=== PATIENT | female | born 1960 | race Caucasian/White ===

== ENCOUNTER 2016-09-10 08:06 | Outpatient (RCR) | payer MEDICARE, BC ==
--- OUTSIDE RECORDS SUMMARY | 2016-06-21 12:44 | XMS REPORT | Continuity of Care Document ---
Author Author [facility] Organization [facility] Address Unknown Phone Unavailable Care Team Providers Care Chocolate Temperer Name Role Phone Self, Albino PCP [phone] Source Comments Some departments are not documenting in the electronic medical record. If you do not see the information that you expected, contact Release of Information in the Health Information Management department at [phone] for further assistance in locating additional records.[facility] Active Allergies and Adverse Reactions No Known Allergies Current Medications Prescription Sig. Disp. Refills Start End Date Status Date levothyroxine (SYNTHROID) Take 125 mcg by mouth Active 125 mcg tablet daily. pravastatin (PRAVACHOL) Take 40 mg by mouth Active 40 mg tablet daily. senna/docusate Take 1 Tab by mouth twice 05/09/20 Active (SENOKOT-S) 8.6/50 mg daily. 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 05/07/15 surgical resection of left frontal brain tumor. Present treatment: Recommend starting radiation followed by PCV chemotherapy for 6 months Oncologist: Dr. Rodriguez Inital Pathology: Anaplastic Oligodendroglioma, WHO Grade III. FISH: A subset of cells had 3 to 7 control singnals for both chromosome 1 and chromosome 19 along with 1 to 4 signals for 1p and 19q. This signla pattern is consistent with polysomy and a relative loss of 1p and 19q. Similar patterns have been reported to be a marker of earlier recurrence in anaplastic oligodendrogliomas. Inital presentation: Right handed F with hx of intermittent headaches located over the bridge of nose, right orbit and neck for severeal yeats, worse laying supine, improved with sitting upright. Noticed increase in memory loss, word finding difficulty, confusion and blurred vision of unknown duration. She was seen by Dr. Jaffe in [place], [place] in May, who ordered an MRI which showed a large frontal mass measuring 6.2 x 4.2 cm. - June 2011: S/p stereotactic guided left craniotomy of left frontal lobe mass with Dr. Finch - July 2011 - First cycle of maintenance Temodar 150 mg/m2 (300 mg) on days 1-5 -- Repeat cycle every 28 days. - September 2012: S/p one year temozolomide - July 2014: MRI ([facility]) showed stable left frontal lobe resection cavity with abnormal enhancing nodule along posterior wall - September 2014: Repeat MRI ([facility]) consistent with MRI in 07/2014, mild increase in tumor size - January 2015: Repeat MRI stable - February 2015: Discussed at Interdisciplinary tumor board, recommended resection then chemo/radiation depending on histology. Patient notified, to weigh options then notify Dr. Howard of decision. Radiation Oncology consulted who did not feel SRS would benefit patient due to multifocal nature of tumors - 05/07/15: S/p surgical resection of left frontal brain tumor, findings=cystic cavity with sanguineous fluid, abnormal nodular tissue at base of cavity; path pending - 05/08/15: Post-op MRI shows expected post-surgical changes -05/20/15: Path results reveal Anaplastic Oligodendroglioma (WHO grade III) d/w with pt and . Recommend starting radiation, followed by PCV chemotherapy. MRI head before PCV is started. Her tumor has deletion and she should benefit from treatment. Will start PC at 50% dose reduction. L ast Assessment & Plan: Reviewed path results with pt and . Recommend starting radiation followed by PCV chemotherapy. Pt is hesitant about tx, particularly radiation. Pt plans to discuss with Dr. Rodriguez and radiologist in [place]. Cerebral edema (HCC) 06/16/2011 Pneumocephalus 06/16/2011 Brain tumor (HCC) 06/15/2011 S/P craniotomy 06/15/2011 Hypothyroidism 06/15/2011 HLD (hyperlipidemia) 06/15/2011 Headache(784.0) 06/15/2011 Social History Tobacco Use Types Packs/Day Years Used Date Current Every Day Smoker Cigars 0.25 32 Smokeless Tobacco: Never Used Comments: cigarettes 2ppd x29 yrs; currently 3 cigars per day Alcohol Use Drinks/Week oz/Week Comments Yes occasionally; less than weekly Last Filed Vital Signs Vital Sign Reading Time Taken Blood Pressure 119/76 05/29/2015 9:55 AM CDT Pulse 85 05/29/2015 9:55 AM CDT Temperature 36.9 C (98.4 F) 05/20/2015 10:36 AM CDT Respiratory Rate - - Height 1.676 m (5' 6") 05/29/2015 9:55 AM CDT Weight 88.451 kg (195 lb) 05/29/2015 9:55 AM CDT Body Mass Index 31.49 05/29/2015 9:55 AM CDT Oxygen Saturation 100% 05/20/2015 10:36 AM CDT Plan of Care Health Maintenance Due Date Last Done Comments Hepatitis C Screening 1959 Physical (Comprehensive) 1966 Exam Pertussis Vaccine 1970 Tetanus Vaccine 1976 Cervical Cancer Screening 1980 Breast Cancer Screening 1999 Colorectal Cancer 2009 Screening Influenza Vaccine 04/15/2016 Results from Last 3 Months Not on file
[2016-06-21 12:54] LABS: BASOPHILS % (AUTO) 0 % (0-10); EOSINOPHILS # (AUTO) 0.1 10^3/uL (0.0-0.3); EOSINOPHILS % (AUTO) 2 % (0-10); LYMPHOCYTES # (AUTO) 1.7 X 10^3 (1.0-4.0); LYMPHOCYTES % (AUTO) 30 % (12-44); MEAN CORPUSCULAR HEMOGLOBIN 35 PG (25-34); MEAN CORPUSCULAR HGB CONC 34 G/DL (32-36); MEAN CORPUSCULAR VOLUME 102 FL (80-99); MEAN PLATELET VOLUME 9.8 FL (7.4-10.4); MONOCYTES # (AUTO) 0.6 X 10^3 (0.0-1.0); MONOCYTES % (AUTO) 10 % (0-12); NEUTROPHILS # (AUTO) 3.3 X 10^3 (1.8-7.8); NEUTROPHILS % (AUTO) 57 % (42-75); PLATELET COUNT 236 10^3/uL (130-400); RED CELL DISTRIBUTION WIDTH 12.6 % (10.0-14.5); WHITE BLOOD COUNT 5.7 10^3/uL (4.3-11.0)
[2016-06-21 13:34] LABS: ALANINE AMINOTRANSFERASE 25 U/L (0-55); ALBUMIN 4.3 G/DL (3.2-4.5); ASPARTATE AMINO TRANSFERASE 15 U/L (5-34); BILIRUBIN,TOTAL 0.3 MG/DL (0.1-1.0); BLOOD UREA NITROGEN 14 MG/DL (7-18); BUN/CREATININE RATIO 19; CALCIUM 9.8 MG/DL (8.5-10.1); CARBON DIOXIDE 25 MMOL/L (21-32); CREATININE SERUM 0.75 MG/DL (0.60-1.30); GFR ESTIMATED > 60; GLUCOSE 125 MG/DL (70-105); TOTAL PROTEIN 7.1 G/DL (6.4-8.2)
[2016-06-21 14:41] LABS: ANION GAP 10 MMOL/L (5-14); CHLORIDE 107 MMOL/L (98-107); POTASSIUM 4.7 MMOL/L (3.6-5.0); SODIUM 142 MMOL/L (135-145)
[2016-09-10 08:20] LABS: BASOPHILS % (AUTO) 0 % (0-10); EOSINOPHILS # (AUTO) 0.1 10^3/uL (0.0-0.3); EOSINOPHILS % (AUTO) 1 % (0-10); LYMPHOCYTES # (AUTO) 1.3 X 10^3 (1.0-4.0); LYMPHOCYTES % (AUTO) 25 % (12-44); MEAN CORPUSCULAR HEMOGLOBIN 34 PG (25-34); MEAN CORPUSCULAR HGB CONC 34 G/DL (32-36); MEAN CORPUSCULAR VOLUME 98 FL (80-99); MEAN PLATELET VOLUME 10.2 FL (7.4-10.4); MONOCYTES # (AUTO) 0.4 X 10^3 (0.0-1.0); MONOCYTES % (AUTO) 8 % (0-12); NEUTROPHILS # (AUTO) 3.5 X 10^3 (1.8-7.8); NEUTROPHILS % (AUTO) 65 % (42-75); PLATELET COUNT 220 10^3/uL (130-400); RED BLOOD COUNT 4.59 10^6/uL (4.35-5.85); RED CELL DISTRIBUTION WIDTH 12.8 % (10.0-14.5); WHITE BLOOD COUNT 5.3 10^3/uL (4.3-11.0)
[2016-09-10 08:44] LABS: ALANINE AMINOTRANSFERASE 29 U/L (0-55); ALBUMIN 4.3 G/DL (3.2-4.5); ANION GAP 10 MMOL/L (5-14); ASPARTATE AMINO TRANSFERASE 18 U/L (5-34); BILIRUBIN,TOTAL 0.4 MG/DL (0.1-1.0); BLOOD UREA NITROGEN 16 MG/DL (7-18); BUN/CREATININE RATIO 21; CALCIUM 9.4 MG/DL (8.5-10.1); CARBON DIOXIDE 24 MMOL/L (21-32); CHLORIDE 106 MMOL/L (98-107); CREATININE SERUM 0.78 MG/DL (0.60-1.30); GFR ESTIMATED > 60; GLUCOSE 119 MG/DL (70-105); POTASSIUM 4.9 MMOL/L (3.6-5.0); SODIUM 140 MMOL/L (135-145); TOTAL PROTEIN 7.2 G/DL (6.4-8.2)
== END 2016-09-19 | disposition home or self-care (01) ==
LOC: ONC 08:06
PROVIDERS: ATTEND Internal Medicine Hematology & Oncology
DX: C71.2 Malignant neoplasm of temporal lobe (principal); I10 Essential (primary) hypertension; Z79.899 Other long term (current) drug therapy; Z87.891 Personal history of nicotine dependence; Z92.21 Personal history of antineoplastic chemotherapy
CPT/HCPCS: 36415; 80053; 85025; 99213

== ENCOUNTER → 2016-09-13 | Outpatient (CLI) | payer MEDICARE, BC ==
[~2016-09-13] MED LIST: GADOBUTROL 10 MMOL/10 ML (GADAVIST) VIAL IV ONE
--- OUTSIDE RECORDS SUMMARY | 2016-09-13 07:57 | XMS REPORT | Continuity of Care Document ---
Author Author [facility] Organization [facility] Address Unknown Phone Unavailable Care Team Providers Care Chief Marketing Officer Name Role Phone Self, Albino PCP [phone] Source Comments Some departments are not documenting in the electronic medical record. If you do not see the information that you expected, contact Release of Information in the Health Information Management department at [phone] for further assistance in locating additional records.[facility] Active Allergies and Adverse Reactions No [...] She was seen by Dr. Jaffe in [place], [place] in May, who ordered an MRI [...] discuss with Dr. Rodriguez and radiologist in [place]. Cerebral edema (HCC) 06/16/2011 Pneumocephalus 06/16/2011 Brain [...]
--- NOTE | 2016-09-13 09:02 | Diagnostic Imaging Report ---
CLINICAL INDICATION: Six-month followup to previous MRI. Brain tumor resection x2 with last one being on 05/07/2015. Patient has no complaints at this time. Exam: MRI of the brain performed without and with 8 cc of Gadavist IV contrast. Sequences include axial DWI, ADC map, coronal gradient echo, axial T2, axial FLAIR, axial T1, axial T1 post IV contrast, coronal T1 fat-sat post IV contrast, and sagittal T1 post IV contrast. Comparison: MRI of the brain performed without and with IV contrast dated 04/07/2016. Findings: Stable postop changes to the left frontal region with craniotomy and resection of the left frontal lobe. There is stable CSF signal intensity fluid collection in the postop region. There is stable amount of high T2 signal involving the left frontal lobe resection cavity and right frontal lobe regions. There is high T2 signal seen extending along the genu of the corpus callosum. There is no nodular or masslike enhancement seen in the region. There is stable minimal dural enhancement beneath the craniotomy flap. The brain parenchymal volume is appropriate for patient's age. There is no other significant brain parenchymal abnormality seen. The visualized [place] vascular structures are unremarkable. Basal cisterns are unremarkable. Besides postop changes, the extracranial soft tissue, skull, and orbits are unremarkable. There is mild mucosal thickening in the sphenoid sinus. IMPRESSION: Stable postop changes to the left frontal region with no evidence of mass like enhancement or concern for developing mass. Dictated by: Dictated on workstation # [id number]
== END ==
LOC: RAD 07:53
PROVIDERS: ATTEND Nurse Practitioner Adult Health
DX: C71.2 Malignant neoplasm of temporal lobe (principal)
CPT/HCPCS: 70553

== ENCOUNTER 2016-12-15 08:38 | Outpatient (RCR) | payer MEDICARE, BC ==
--- OUTSIDE RECORDS SUMMARY | 2016-09-22 08:51 | XMS REPORT | Continuity of Care Document ---
Author Author [facility] Organization [facility] Address Unknown Phone Unavailable Care Team Providers Care Professional Volleyball Player Name Role Phone Self, Albino PCP [phone] Source Comments Some departments are not documenting in the electronic medical record. If you do not see the information that you expected, contact Release of Information in the Health Information Management department at [phone] for further assistance in locating additional records.[facility] Active Allergies and Adverse Reactions [...] She was seen by Dr. Jaffe in [place], [place] in May, who ordered an MRI [...] discuss with Dr. Rodriguez and radiologist in [place]. Cerebral edema (HCC) 06/16/2011 Pneumocephalus 06/16/2011 Brain [...]
[2016-12-15 08:58] LABS: BASOPHILS % (AUTO) 0 % (0-10); EOSINOPHILS # (AUTO) 0.1 10^3/uL (0.0-0.3); EOSINOPHILS % (AUTO) 1 % (0-10); LYMPHOCYTES # (AUTO) 1.8 X 10^3 (1.0-4.0); LYMPHOCYTES % (AUTO) 34 % (12-44); MEAN CORPUSCULAR HEMOGLOBIN 34 PG (25-34); MEAN CORPUSCULAR HGB CONC 35 G/DL (32-36); MEAN CORPUSCULAR VOLUME 98 FL (80-99); MEAN PLATELET VOLUME 10.3 FL (7.4-10.4); MONOCYTES # (AUTO) 0.6 X 10^3 (0.0-1.0); MONOCYTES % (AUTO) 11 % (0-12); NEUTROPHILS # (AUTO) 2.8 X 10^3 (1.8-7.8); NEUTROPHILS % (AUTO) 54 % (42-75); PLATELET COUNT 220 10^3/uL (130-400); RED BLOOD COUNT 4.36 10^6/uL (4.35-5.85); RED CELL DISTRIBUTION WIDTH 13.1 % (10.0-14.5); WHITE BLOOD COUNT 5.3 10^3/uL (4.3-11.0)
[2016-12-15 09:24] LABS: ALANINE AMINOTRANSFERASE 25 U/L (0-55); ALBUMIN 4.3 G/DL (3.2-4.5); ANION GAP 9 MMOL/L (5-14); ASPARTATE AMINO TRANSFERASE 18 U/L (5-34); BILIRUBIN,TOTAL 0.6 MG/DL (0.1-1.0); BLOOD UREA NITROGEN 16 MG/DL (7-18); BUN/CREATININE RATIO 21; CALCIUM 9.5 MG/DL (8.5-10.1); CARBON DIOXIDE 26 MMOL/L (21-32); CHLORIDE 106 MMOL/L (98-107); CREATININE SERUM 0.77 MG/DL (0.60-1.30); GFR ESTIMATED > 60; GLUCOSE 103 MG/DL (70-105); POTASSIUM 4.9 MMOL/L (3.6-5.0); SODIUM 141 MMOL/L (135-145)
== END 2016-12-21 | disposition home or self-care (01) ==
LOC: ONC 08:38
PROVIDERS: ATTEND Internal Medicine Hematology & Oncology
DX: C71.2 Malignant neoplasm of temporal lobe (principal); I10 Essential (primary) hypertension; Z79.899 Other long term (current) drug therapy; Z87.891 Personal history of nicotine dependence; Z92.21 Personal history of antineoplastic chemotherapy
CPT/HCPCS: 80053; 85025; 99213

== ENCOUNTER → 2016-12-15 | Outpatient (CLI) | payer MEDICARE, BC ==
[2016-12-15 10:25] LABS: THYROID STIMULATING HORMONE 0.3 UIU/ML (0.35-4.94)
== END ==
LOC: LAB 08:52
PROVIDERS: ATTEND Family Medicine
DX: E03.9 Hypothyroidism, unspecified (principal); Z13.220 Encounter for screening for lipoid disorders
CPT/HCPCS: 36415; 80061; 84439; 84443

== ENCOUNTER → 2017-03-16 | Outpatient (CLI) | payer MEDICARE, BC ==
--- NOTE | 2017-03-16 09:35 | Diagnostic Imaging Report ---
PROCEDURE: MR imaging of the brain with and without contrast. TECHNIQUE: Multiplanar/multisequence MR imaging of the brain was performed with and without contrast. INDICATION: History of anaplastic oligodendroglioma of the temporal lobe. The patient has had tumor resection twice, the last one on 05/07/2015. CONTRAST: 8 mL of Gadovist was administered intravenously. COMPARISON: 09/13/2016. FINDINGS: Again seen is a left frontal resection cavity. There is abnormal T2 and FLAIR signal around the resection with no significant change seen. There is a subtle area of mild enhancement, however, noted in the right side aspect of the genu of the corpus callosum measuring 1.1 x 0.9 x 0.6 cm. This area of enhancement is not clearly seen on the previous exam. There is no definitive change in the surrounding T2 signal abnormality in this region. There are no other enhancing lesions identified. Other areas of periventricular and deep white matter T2 hyperintensities are nonspecific and stable from the prior exam. There is no hydrocephalus. The pituitary gland is normal in size. No hypothalamic or pineal region mass. The central vascular flow-voids appear grossly unremarkable. IMPRESSION: There is a new area of subtle enhancement in the right side aspect of the genu of the corpus callosum measuring about 1.1 cm in size, concerning for early tumor recurrence. The findings were discussed with Layla by Dr. Díaz at the time of dictation. Dictated by: Dictated on workstation # [id number]
== END ==
LOC: RAD 07:37
PROVIDERS: ATTEND Nurse Practitioner Adult Health
DX: C71.2 Malignant neoplasm of temporal lobe (principal)
CPT/HCPCS: 70553

== ENCOUNTER 2017-05-11 12:30 | Outpatient (RCR) | payer MEDICARE, BC ==
[2017-03-15 08:51] LABS: BASOPHILS % (AUTO) 0 % (0-10); EOSINOPHILS # (AUTO) 0.1 10^3/uL (0.0-0.3); EOSINOPHILS % (AUTO) 1 % (0-10); LYMPHOCYTES # (AUTO) 1.5 X 10^3 (1.0-4.0); LYMPHOCYTES % (AUTO) 27 % (12-44); MEAN CORPUSCULAR HEMOGLOBIN 34 PG (25-34); MEAN CORPUSCULAR HGB CONC 35 G/DL (32-36); MEAN CORPUSCULAR VOLUME 99 FL (80-99); MEAN PLATELET VOLUME 10.2 FL (7.4-10.4); MONOCYTES # (AUTO) 0.4 X 10^3 (0.0-1.0); MONOCYTES % (AUTO) 8 % (0-12); NEUTROPHILS # (AUTO) 3.5 X 10^3 (1.8-7.8); NEUTROPHILS % (AUTO) 64 % (42-75); PLATELET COUNT 192 10^3/uL (130-400); RED BLOOD COUNT 4.13 10^6/uL (4.35-5.85); RED CELL DISTRIBUTION WIDTH 13.6 % (10.0-14.5); WHITE BLOOD COUNT 5.5 10^3/uL (4.3-11.0)
[2017-03-15 09:55] LABS: ALANINE AMINOTRANSFERASE 22 U/L (0-55); ALBUMIN 4.1 GM/DL (3.2-4.5); ANION GAP 6 MMOL/L (5-14); ASPARTATE AMINO TRANSFERASE 16 U/L (5-34); BILIRUBIN,TOTAL 0.6 MG/DL (0.1-1.0); BLOOD UREA NITROGEN 13 MG/DL (7-18); BUN/CREATININE RATIO 18; CALCIUM 9.5 MG/DL (8.5-10.1); CARBON DIOXIDE 30 MMOL/L (21-32); CHLORIDE 106 MMOL/L (98-107); CREATININE SERUM 0.74 MG/DL (0.60-1.30); GFR ESTIMATED > 60; GLUCOSE 107 MG/DL (70-105); POTASSIUM 4.7 MMOL/L (3.6-5.0); SODIUM 142 MMOL/L (135-145); TOTAL PROTEIN 6.9 GM/DL (6.4-8.2)
[2017-05-11 12:43] LABS: BASOPHILS % (AUTO) 0 % (0-10); EOSINOPHILS # (AUTO) 0.1 10^3/uL (0.0-0.3); EOSINOPHILS % (AUTO) 1 % (0-10); LYMPHOCYTES # (AUTO) 2.6 X 10^3 (1.0-4.0); LYMPHOCYTES % (AUTO) 32 % (12-44); MEAN CORPUSCULAR HEMOGLOBIN 33 PG (25-34); MEAN CORPUSCULAR HGB CONC 34 G/DL (32-36); MEAN CORPUSCULAR VOLUME 99 FL (80-99); MEAN PLATELET VOLUME 10.5 FL (7.4-10.4); MONOCYTES # (AUTO) 0.6 X 10^3 (0.0-1.0); MONOCYTES % (AUTO) 8 % (0-12); NEUTROPHILS # (AUTO) 4.9 X 10^3 (1.8-7.8); NEUTROPHILS % (AUTO) 60 % (42-75); PLATELET COUNT 228 10^3/uL (130-400); RED BLOOD COUNT 4.53 10^6/uL (4.35-5.85); RED CELL DISTRIBUTION WIDTH 13.1 % (10.0-14.5); WHITE BLOOD COUNT 8.2 10^3/uL (4.3-11.0)
[2017-05-11 13:00] LABS: ALANINE AMINOTRANSFERASE 24 U/L (0-55); ALBUMIN 4.5 GM/DL (3.2-4.5); ANION GAP 10 MMOL/L (5-14); ASPARTATE AMINO TRANSFERASE 20 U/L (5-34); BILIRUBIN,TOTAL 0.5 MG/DL (0.1-1.0); BLOOD UREA NITROGEN 18 MG/DL (7-18); BUN/CREATININE RATIO 22; CALCIUM 9.9 MG/DL (8.5-10.1); CARBON DIOXIDE 27 MMOL/L (21-32); CHLORIDE 105 MMOL/L (98-107); CREATININE SERUM 0.82 MG/DL (0.60-1.30); GFR ESTIMATED > 60; GLUCOSE 129 MG/DL (70-105); POTASSIUM 4.9 MMOL/L (3.6-5.0); SODIUM 142 MMOL/L (135-145); TOTAL PROTEIN 7.7 GM/DL (6.4-8.2)
== END 2017-05-14 | disposition home or self-care (01) ==
LOC: ONC 12:30
PROVIDERS: ATTEND Internal Medicine Hematology & Oncology
DX: C71.2 Malignant neoplasm of temporal lobe (principal); I10 Essential (primary) hypertension; Z79.899 Other long term (current) drug therapy; Z87.891 Personal history of nicotine dependence; Z92.21 Personal history of antineoplastic chemotherapy
CPT/HCPCS: 36415; 80053; 85025; 99213

== ENCOUNTER → 2017-05-16 | Outpatient (CLI) | payer MEDICARE, BC ==
[~2017-05-16] MED LIST changes: -GADOBUTROL 10 MMOL/10 ML (GADAVIST) VIAL IV ONE; +GADOBUTROL 7.5 MMOL/7.5 ML (GADAVIST) VIAL IV ONE
--- NOTE | 2017-05-16 09:58 | Diagnostic Imaging Report ---
Clinical indication: Patient with brain tumor resection x2. Last resection was on 05/07/2015. Exam: MRI of the brain performed without and with 8 cc of Gadavist IV contrast. Sequences include axial DWI, ADC map, coronal gradient echo, axial T2, axial FLAIR, axial T1, axial T1 post IV contrast, coronal T1 fat-sat post IV contrast, and sagittal T1 post IV contrast. Comparison: MRI of the brain performed without and with IV contrast dated 03/16/2017. Findings: Again seen postop changes to the left frontal region with craniotomy. There is stable appearance of the large cystic structure in the left frontal postop region which has CSF signal intensity. There is no significant change to the small area of amorphous enhancement involving the genu of the right side of the corpus callosum. This area measures roughly 6 mm x 11 mm x 6 mm (AP x Trans x CC) . There is also minimal high T2 signal associated with the immediate area. There are stable moderate amount of confluent high T2 signal involving the left frontal lobe and adjacent to the resection cavity left frontal lobe and small amount of fluid and high T2 signal involving the right frontal lobe and periventricular region. There is no evidence of developing IV contrast enhancement or mass seen. Besides the postop changes, the brain parenchymal volume is appropriate for patient's age. There is no evidence of acute cerebral infarct, intracranial hemorrhage, or brain herniation. There is no hydrocephalus. Basal cisterns are unremarkable. The [place] vascular structures show no gross abnormality as visualized. The pituitary gland, sella, and suprasellar regions are unremarkable as visualized. Besides postop changes, the extracranial soft tissue, skull, and orbits are otherwise unremarkable. There is mild mucosal thickening involving both maxillary sinuses and ethmoid sinus. Temporal bone structures show no significant abnormality. IMPRESSION: 1.: Overall stable MRI of the brain including postop changes to the left frontal region. 2: There is stable small area of amorphous enhancement involving the right side of the genu of the corpus callosum. This area should continue to be followed on subsequent imaging. 3: There are no other areas of developing abnormal IV contrast enhancement. 4: The remainder of this exam shows no significant interval change compared to the prior study of comparison. Dictated by: Dictated on workstation # [id number]
== END ==
LOC: RAD 07:52
PROVIDERS: ATTEND Internal Medicine Hematology & Oncology
DX: C71.2 Malignant neoplasm of temporal lobe (principal); Z98.890 Other specified postprocedural states
CPT/HCPCS: 70553

== ENCOUNTER 2017-05-19 10:34 | Outpatient (RCR) | payer MEDICARE, BC | END 2017-08-14 | disposition home or self-care (01) | LOC: ONC 10:34 | PROVIDERS: ATTEND Internal Medicine Hematology & Oncology | DX: C71.2 Malignant neoplasm of temporal lobe (principal); I10 Essential (primary) hypertension; Z79.899 Other long term (current) drug therapy; Z87.891 Personal history of nicotine dependence; Z92.21 Personal history of antineoplastic chemotherapy | CPT/HCPCS: 99213 ==

== ENCOUNTER → 2017-09-12 | Outpatient (CLI) | payer MEDICARE, BC ==
--- NOTE | 2017-09-12 10:27 | Diagnostic Imaging Report ---
PROCEDURE: MR imaging of the brain with and without contrast. TECHNIQUE: Multiplanar, multisequence MR imaging of the brain was performed with and without contrast. INDICATION: Anaplastic oligodendroglioma. Comparison made with prior examination 05/16/17. FINDINGS: Note is again made of postsurgical changes in the left frontal region where there has been a craniotomy. There is a large cystic area in the left frontal postop region which has CSF signal intensity. This is essentially unchanged when compared to prior examination. There is now some nodular enhancement along the genu of the corpus callosum on the right. This has increased since the prior examination, however, is difficult to measure. There are no other abnormal areas of contrast enhancement. There is no hemorrhage. There is no extra-axial fluid collection. There are no areas of diffusion restriction appreciated to suggest an acute CVA. The frontal sinus and ethmoid air cells are clear. There is minimal mucosal thickening in the sphenoid sinus. Maxillary sinuses are clear. Mastoid air cells are clear. The globes and intraorbital structures are unremarkable. The central arterial and dural venous sinus flow voids are preserved. IMPRESSION: Stable postsurgical changes of previous left frontal craniotomy with underlying cystic encephalomalacia. There has, however, been an increase in the multinodular area of enhancement along the genu of the corpus callosum as well as along the periphery of the frontal horn of the right lateral ventricle. Possibility of tumor recurrence certainly cannot be excluded. Additionally, if the patient received radiation this could conceivably reflect radiation-induced necrosis. Recommend clinical correlation. Minimal mucosal thickening in the sphenoid sinus. Dictated by: Dictated on workstation # [id number]
== END ==
LOC: RAD 08:20
PROVIDERS: ATTEND Internal Medicine Hematology & Oncology
DX: C71.2 Malignant neoplasm of temporal lobe (principal); Z98.890 Other specified postprocedural states
CPT/HCPCS: 70553

== ENCOUNTER 2017-09-15 08:40 | Outpatient (RCR) | payer MEDICARE, BC ==
[2017-09-09 08:41] LABS: BASOPHILS % (AUTO) 0 % (0-10); EOSINOPHILS # (AUTO) 0.1 10^3/uL (0.0-0.3); EOSINOPHILS % (AUTO) 1 % (0-10); HEMATOCRIT 47 % (35-52); HEMOGLOBIN 16.6 G/DL (11.5-16.0); LYMPHOCYTES # (AUTO) 1.5 X 10^3 (1.0-4.0); LYMPHOCYTES % (AUTO) 23 % (12-44); MEAN CORPUSCULAR HEMOGLOBIN 35 PG (25-34); MEAN CORPUSCULAR HGB CONC 35 G/DL (32-36); MEAN CORPUSCULAR VOLUME 98 FL (80-99); MEAN PLATELET VOLUME 10.3 FL (7.4-10.4); MONOCYTES # (AUTO) 0.4 X 10^3 (0.0-1.0); MONOCYTES % (AUTO) 6 % (0-12); NEUTROPHILS # (AUTO) 4.3 X 10^3 (1.8-7.8); NEUTROPHILS % (AUTO) 69 % (42-75); PLATELET COUNT 218 10^3/uL (130-400); RED BLOOD COUNT 4.81 10^6/uL (4.35-5.85); WHITE BLOOD COUNT 6.3 10^3/uL (4.3-11.0)
[2017-09-09 09:01] LABS: ALANINE AMINOTRANSFERASE 27 U/L (0-55); ALBUMIN 4.4 GM/DL (3.2-4.5); ALKALINE PHOSPHATASE 87 U/L (40-136); BILIRUBIN,TOTAL 0.5 MG/DL (0.1-1.0); BUN/CREATININE RATIO 20; CALCIUM 9.9 MG/DL (8.5-10.1); CARBON DIOXIDE 24 MMOL/L (21-32); CHLORIDE 104 MMOL/L (98-107); CREATININE SERUM 0.81 MG/DL (0.60-1.30); GFR ESTIMATED > 60; GLUCOSE 86 MG/DL (70-105); SODIUM 141 MMOL/L (135-145); TOTAL PROTEIN 8.4 GM/DL (6.4-8.2)
[2017-09-09 09:10] LABS: POTASSIUM 5.4 MMOL/L (3.6-5.0)
== END 2017-12-08 | disposition home or self-care (01) ==
LOC: ONC 08:40
PROVIDERS: ATTEND Internal Medicine Hematology & Oncology
DX: C71.2 Malignant neoplasm of temporal lobe (principal); I10 Essential (primary) hypertension; Z79.899 Other long term (current) drug therapy; Z87.891 Personal history of nicotine dependence; Z92.21 Personal history of antineoplastic chemotherapy
CPT/HCPCS: 80053; 85025; 99213

== ENCOUNTER 2017-12-22 08:40 | Outpatient (RCR) | payer MEDICARE, BC ==
[2017-12-22 09:08] LABS: BASOPHILS % (AUTO) 0 % (0-10); EOSINOPHILS # (AUTO) 0.1 10^3/uL (0.0-0.3); EOSINOPHILS % (AUTO) 2 % (0-10); HEMATOCRIT 40 % (35-52); HEMOGLOBIN 13.8 G/DL (11.5-16.0); LYMPHOCYTES # (AUTO) 1.8 X 10^3 (1.0-4.0); LYMPHOCYTES % (AUTO) 32 % (12-44); MEAN CORPUSCULAR HEMOGLOBIN 34 PG (25-34); MEAN CORPUSCULAR HGB CONC 35 G/DL (32-36); MEAN CORPUSCULAR VOLUME 98 FL (80-99); MEAN PLATELET VOLUME 10.2 FL (7.4-10.4); MONOCYTES # (AUTO) 0.6 X 10^3 (0.0-1.0); MONOCYTES % (AUTO) 11 % (0-12); NEUTROPHILS # (AUTO) 3.1 X 10^3 (1.8-7.8); NEUTROPHILS % (AUTO) 56 % (42-75); PLATELET COUNT 214 10^3/uL (130-400); RED BLOOD COUNT 4.06 10^6/uL (4.35-5.85); WHITE BLOOD COUNT 5.6 10^3/uL (4.3-11.0)
[2017-12-22 09:25] LABS: ALANINE AMINOTRANSFERASE 17 U/L (0-55); ALBUMIN 4.2 GM/DL (3.2-4.5); ALKALINE PHOSPHATASE 58 U/L (40-136); BILIRUBIN,TOTAL 0.4 MG/DL (0.1-1.0); BUN/CREATININE RATIO 23; CALCIUM 9.3 MG/DL (8.5-10.1); CARBON DIOXIDE 25 MMOL/L (21-32); CHLORIDE 111 MMOL/L (98-107); CREATININE SERUM 0.71 MG/DL (0.60-1.30); GFR ESTIMATED > 60; GLUCOSE 99 MG/DL (70-105); POTASSIUM 4.6 MMOL/L (3.6-5.0); SODIUM 143 MMOL/L (135-145)
== END 2018-03-10 08:17 | disposition home or self-care (01) ==
LOC: ONC 08:40
PROVIDERS: ATTEND Internal Medicine Hematology & Oncology
DX: C71.2 Malignant neoplasm of temporal lobe (principal); I10 Essential (primary) hypertension; Z79.899 Other long term (current) drug therapy; Z87.891 Personal history of nicotine dependence; Z92.21 Personal history of antineoplastic chemotherapy
CPT/HCPCS: 36415; 80053; 85025; 99213

== ENCOUNTER → 2017-12-22 | Outpatient (CLI) | payer MEDICARE, BC | LOC: LAB 09:08 | PROVIDERS: ATTEND Family Medicine | DX: E78.5 Hyperlipidemia, unspecified (principal); E03.9 Hypothyroidism, unspecified ==

== ENCOUNTER → 2018-03-13 | Outpatient (CLI) | payer MEDICARE, BC ==
--- NOTE | 2018-03-13 09:38 | Diagnostic Imaging Report ---
PROCEDURE: MR imaging of the brain with and without contrast. INDICATION: History of a tumor resection with chemotherapy and radiation treatment for anaplastic oligodendroglioma. TECHNIQUE: Multiplanar, multisequence MR imaging of the brain was performed with and without contrast. CORRELATION STUDY: 09/12/2017, 05/16/2017. FINDINGS: Surgical change of the left frontal craniotomy and large cystic cavity occupying the frontal postoperative region with CSF signal intensity persists. Overall configuration of cystic cavity appearing relatively stable. There has been progressive increase in the area of somewhat amorphous enhancement involving the right aspect of the genu of the corpus callosum and right frontal lobe. This area currently measures approximately 20 x 19 mm in the axial plane by 18 mm craniocaudal, previously measuring approximately 18 x 10 mm in the axial plane by 10 mm craniocaudal. Additional area of enhancement along the peripheral margins of the cystic cavity along its posterior superior left aspect somewhat difficult to quantify but measures approximately 37 x 13 mm visualized on the cranial images previously measuring approximately 17 x 7 mm. Dominant nodule along the posterior margins measures 12 x 7 mm axial plane. The surrounding areas of hyperintense T2 vasogenic edema is slightly increased. No midline shift. Mucosal thickening particularly sphenoid sinus is present. IMPRESSION: 1. Postop change left frontal region again demonstrated. There has been increase in the areas of amorphous enhancement along the right-sided genu of corpus callosum as well as along the posterior superior margins of the cystic cavity concerning for residual or recurrent tumor. Dictated by: Dictated on workstation # [id number]
== END ==
LOC: RAD 07:04
PROVIDERS: ATTEND Internal Medicine Hematology & Oncology
DX: C71.2 Malignant neoplasm of temporal lobe (principal); Z98.890 Other specified postprocedural states
CPT/HCPCS: 70553

== ENCOUNTER 2018-03-16 08:42 | Outpatient (RCR) | payer MEDICARE, BC ==
[2018-03-10 08:34] LABS: BASOPHILS % (AUTO) 0 % (0-10); EOSINOPHILS # (AUTO) 0.1 10^3/uL (0.0-0.3); EOSINOPHILS % (AUTO) 1 % (0-10); HEMATOCRIT 46 % (35-52); HEMOGLOBIN 15.9 G/DL (11.5-16.0); LYMPHOCYTES # (AUTO) 1.5 X 10^3 (1.0-4.0); LYMPHOCYTES % (AUTO) 25 % (12-44); MEAN CORPUSCULAR HEMOGLOBIN 34 PG (25-34); MEAN CORPUSCULAR HGB CONC 35 G/DL (32-36); MEAN CORPUSCULAR VOLUME 98 FL (80-99); MONOCYTES # (AUTO) 0.4 X 10^3 (0.0-1.0); MONOCYTES % (AUTO) 6 % (0-12); NEUTROPHILS # (AUTO) 4.1 X 10^3 (1.8-7.8); NEUTROPHILS % (AUTO) 67 % (42-75); PLATELET COUNT 221 10^3/uL (130-400); RED BLOOD COUNT 4.67 10^6/uL (4.35-5.85); RED CELL DISTRIBUTION WIDTH 13.3 % (10.0-14.5); WHITE BLOOD COUNT 6.1 10^3/uL (4.3-11.0)
[2018-03-10 08:51] LABS: ALANINE AMINOTRANSFERASE 19 U/L (0-55); ALBUMIN 4.4 GM/DL (3.2-4.5); ALKALINE PHOSPHATASE 74 U/L (40-136); BILIRUBIN,TOTAL 0.4 MG/DL (0.1-1.0); BUN/CREATININE RATIO 16; CALCIUM 9.7 MG/DL (8.5-10.1); CARBON DIOXIDE 27 MMOL/L (21-32); CHLORIDE 105 MMOL/L (98-107); CREATININE SERUM 0.79 MG/DL (0.60-1.30); GFR ESTIMATED > 60; GLUCOSE 108 MG/DL (70-105); POTASSIUM 4.1 MMOL/L (3.6-5.0); SODIUM 140 MMOL/L (135-145); TOTAL PROTEIN 6.9 GM/DL (6.4-8.2)
== END 2018-06-08 | disposition home or self-care (01) ==
LOC: ONC 08:42
PROVIDERS: ATTEND Internal Medicine Hematology & Oncology
DX: C71.2 Malignant neoplasm of temporal lobe (principal); I10 Essential (primary) hypertension; Z79.899 Other long term (current) drug therapy; Z87.891 Personal history of nicotine dependence; Z92.21 Personal history of antineoplastic chemotherapy
CPT/HCPCS: 36415; 80053; 85025; 99213

== ENCOUNTER 2018-06-22 08:45 | Outpatient (RCR) | payer MEDICARE, BC ==
[2018-06-22 08:57] LABS: BASOPHILS % (AUTO) 0 % (0-10); EOSINOPHILS # (AUTO) 0.1 10^3/uL (0.0-0.3); EOSINOPHILS % (AUTO) 2 % (0-10); HEMATOCRIT 45 % (35-52); HEMOGLOBIN 15.1 G/DL (11.5-16.0); LYMPHOCYTES # (AUTO) 1.6 X 10^3 (1.0-4.0); LYMPHOCYTES % (AUTO) 30 % (12-44); MEAN CORPUSCULAR HEMOGLOBIN 33 PG (25-34); MEAN CORPUSCULAR HGB CONC 34 G/DL (32-36); MEAN CORPUSCULAR VOLUME 98 FL (80-99); MEAN PLATELET VOLUME 10.1 FL (7.4-10.4); MONOCYTES # (AUTO) 0.6 X 10^3 (0.0-1.0); MONOCYTES % (AUTO) 10 % (0-12); NEUTROPHILS # (AUTO) 3.1 X 10^3 (1.8-7.8); NEUTROPHILS % (AUTO) 58 % (42-75); PLATELET COUNT 222 10^3/uL (130-400); RED CELL DISTRIBUTION WIDTH 13.3 % (10.0-14.5); WHITE BLOOD COUNT 5.4 10^3/uL (4.3-11.0)
[2018-06-22 09:16] LABS: ALANINE AMINOTRANSFERASE 21 U/L (0-55); ALBUMIN 4.4 GM/DL (3.2-4.5); ALKALINE PHOSPHATASE 72 U/L (40-136); BILIRUBIN,TOTAL 0.6 MG/DL (0.1-1.0); BUN/CREATININE RATIO 19; CALCIUM 9.8 MG/DL (8.5-10.1); CARBON DIOXIDE 24 MMOL/L (21-32); CHLORIDE 105 MMOL/L (98-107); CREATININE SERUM 0.79 MG/DL (0.60-1.30); GFR ESTIMATED > 60; GLUCOSE 89 MG/DL (70-105); POTASSIUM 4.5 MMOL/L (3.6-5.0); SODIUM 140 MMOL/L (135-145); TOTAL PROTEIN 7.4 GM/DL (6.4-8.2)
== END 2018-09-20 | disposition home or self-care (01) ==
LOC: ONC 08:45
PROVIDERS: ATTEND Internal Medicine Hematology & Oncology
DX: C71.2 Malignant neoplasm of temporal lobe (principal); I10 Essential (primary) hypertension; Z79.899 Other long term (current) drug therapy; Z87.891 Personal history of nicotine dependence; Z92.21 Personal history of antineoplastic chemotherapy
CPT/HCPCS: 36415; 80053; 85025; 99213

== ENCOUNTER → 2018-09-26 | Outpatient (CLI) | payer MEDICARE, BC ==
--- NOTE | 2018-09-26 15:39 | Diagnostic Imaging Report ---
PROCEDURE: MR imaging of the brain with and without contrast. TECHNIQUE: Multiplanar, multisequence MR imaging of the brain was performed with and without contrast. INDICATION: Temporal lobe mass with surgical resections in 2010 and 2014. COMPARISON: Today's study compared with brain MRI 03/13/2018 and is followup. FINDINGS: A left frontoparietal craniotomy redemonstrated. A left frontal lobe cystic postoperative cavity is unchanged in size at 6.5 x 4.2 cm. There is further progressive abnormal parenchymal enhancement in the left frontal lobe along the posterior and posteromedial margins of the cystic cavity at its superior aspect. An area of nodular enhancement is today measuring 1.3 x 0.9 cm previously at 1.2 x 0.7 cm. There is progressive contralateral ill-defined enhancing tissue that appears to traverse the genu of the the corpus callosum and extends anterior to the frontal horn of the right lateral ventricle in its anterior body. There is contralateral right frontal lobe enhancing tissue measuring today at 3.2 cm AP x 2.3 cm transverse, previously 2.0 x 1.8 cm. Findings remain most suggestive of progressive recurrent or residual bilateral tumor. No resultant shift or herniation. No new site of abnormal presumed neoplastic infiltration and no findings of an infarct or hemorrhage. The basilar cisterns are patent. No evidence for elevated pressures. IMPRESSION: Findings presumed to reflect further progressive bilateral intracranial involvement by residual or recurrent tumor with otherwise stable postoperative sequelae. No infarct, hemorrhage, shift or herniation. Dictated by: Dictated on workstation # [id number]
== END ==
LOC: RAD 07:27
PROVIDERS: ATTEND Nurse Practitioner Adult Health
DX: C71.2 Malignant neoplasm of temporal lobe (principal); Z98.890 Other specified postprocedural states
CPT/HCPCS: 70553

== ENCOUNTER 2018-10-02 13:04 | Outpatient (RCR) | payer MEDICARE, BC ==
[2018-09-25 08:55] LABS: BASOPHILS % (AUTO) 0 % (0-10); EOSINOPHILS # (AUTO) 0.1 10^3/uL (0.0-0.3); EOSINOPHILS % (AUTO) 2 % (0-10); HEMATOCRIT 44 % (35-52); LYMPHOCYTES # (AUTO) 1.6 X 10^3 (1.0-4.0); LYMPHOCYTES % (AUTO) 26 % (12-44); MEAN CORPUSCULAR HEMOGLOBIN 33 PG (25-34); MEAN CORPUSCULAR HGB CONC 34 G/DL (32-36); MEAN CORPUSCULAR VOLUME 97 FL (80-99); MEAN PLATELET VOLUME 10.2 FL (7.4-10.4); MONOCYTES # (AUTO) 0.6 X 10^3 (0.0-1.0); MONOCYTES % (AUTO) 9 % (0-12); NEUTROPHILS # (AUTO) 3.9 X 10^3 (1.8-7.8); NEUTROPHILS % (AUTO) 63 % (42-75); PLATELET COUNT 229 10^3/uL (130-400); RED CELL DISTRIBUTION WIDTH 13.2 % (10.0-14.5); WHITE BLOOD COUNT 6.2 10^3/uL (4.3-11.0)
[2018-09-25 09:18] LABS: ALANINE AMINOTRANSFERASE 20 U/L (0-55); ALBUMIN 4.3 GM/DL (3.2-4.5); ALKALINE PHOSPHATASE 77 U/L (40-136); BILIRUBIN,TOTAL 0.5 MG/DL (0.1-1.0); BUN/CREATININE RATIO 16; CALCIUM 9.6 MG/DL (8.5-10.1); CARBON DIOXIDE 25 MMOL/L (21-32); CHLORIDE 105 MMOL/L (98-107); CREATININE SERUM 0.81 MG/DL (0.60-1.30); GFR ESTIMATED > 60; GLUCOSE 100 MG/DL (70-105); POTASSIUM 4.6 MMOL/L (3.6-5.0); SODIUM 142 MMOL/L (135-145); TOTAL PROTEIN 7.3 GM/DL (6.4-8.2)
== END 2018-12-24 | disposition home or self-care (01) ==
LOC: ONC 13:04
PROVIDERS: ATTEND Internal Medicine Hematology & Oncology
DX: C71.2 Malignant neoplasm of temporal lobe (principal); I10 Essential (primary) hypertension; Z79.899 Other long term (current) drug therapy; Z87.891 Personal history of nicotine dependence; Z92.21 Personal history of antineoplastic chemotherapy
CPT/HCPCS: 36415; 80053; 85025; 99213

== ENCOUNTER → 2019-03-28 | Outpatient (CLI) | payer MEDICARE, BC ==
--- NOTE | 2019-03-28 10:25 | Diagnostic Imaging Report ---
PROCEDURE: MR imaging of the brain with and without contrast. TECHNIQUE: Multiplanar, multisequence MR imaging of the brain was performed with and without contrast. INDICATION: Brain tumor with tumor resection in 2010 and 2014. Study is performed for followup. Correlation is made with prior MRI of the brain from 09/26/2018. FINDINGS: Large postoperative cystic cavity left frontal lobe is again noted and appears stable in size. Previously noted abnormal enhancement along the posterior and medial margin of the cystic cavity superiorly is again seen. A posterior nodular component has increased measuring 2.3 x 1.3 cm compared with 1.8 x 0.4 cm when measured by a similar technique. There is more enhancement inferiorly in the region of the left basal ganglia adjacent to the left frontal horn measuring 3.0 x 0.6 cm. The irregular contralateral enhancement in the right frontal lobe and along the genu of the corpus callosum has increased measuring 5.1 x 2.3 cm compared with 3.2 x 1.9 cm when measured by similar technique. No other regions of abnormal enhancement are identified. There is no midline shift. No acute intracranial hemorrhage is detected. No diffusion restriction is seen. IMPRESSION: Continued further progression of bilateral intracranial involvement by residual or recurrent tumor when compared with prior MRI brain from 09/26/2018. No hemorrhage or acute infarct is detected. Dictated by: Dictated on workstation # [id number]
== END ==
LOC: RAD 07:28
PROVIDERS: ATTEND Internal Medicine Hematology & Oncology
DX: C71.2 Malignant neoplasm of temporal lobe (principal)
CPT/HCPCS: 70553

== ENCOUNTER 2019-04-03 08:47 | Outpatient (RCR) | payer MEDICARE, BC ==
[2019-03-26 09:03] LABS: BASOPHILS % (AUTO) 1 % (0-10); EOSINOPHILS # (AUTO) 0.1 10^3/uL (0.0-0.3); EOSINOPHILS % (AUTO) 1 % (0-10); HEMATOCRIT 44 % (35-52); HEMOGLOBIN 15.4 G/DL (11.5-16.0); LYMPHOCYTES # (AUTO) 1.5 X 10^3 (1.0-4.0); LYMPHOCYTES % (AUTO) 26 % (12-44); MEAN CORPUSCULAR HEMOGLOBIN 34 PG (25-34); MEAN CORPUSCULAR HGB CONC 35 G/DL (32-36); MEAN CORPUSCULAR VOLUME 96 FL (80-99); MEAN PLATELET VOLUME 10.6 FL (7.4-10.4); MONOCYTES # (AUTO) 0.5 X 10^3 (0.0-1.0); MONOCYTES % (AUTO) 9 % (0-12); NEUTROPHILS # (AUTO) 3.6 X 10^3 (1.8-7.8); NEUTROPHILS % (AUTO) 64 % (42-75); PLATELET COUNT 198 10^3/uL (130-400); RED CELL DISTRIBUTION WIDTH 13.5 % (10.0-14.5); WHITE BLOOD COUNT 5.6 10^3/uL (4.3-11.0)
[2019-03-26 09:23] LABS: ALANINE AMINOTRANSFERASE 15 U/L (0-55); ALBUMIN 4.3 GM/DL (3.2-4.5); ALKALINE PHOSPHATASE 79 U/L (40-136); BILIRUBIN,TOTAL 0.5 MG/DL (0.1-1.0); BUN/CREATININE RATIO 19; CALCIUM 9.8 MG/DL (8.5-10.1); CARBON DIOXIDE 25 MMOL/L (21-32); CHLORIDE 107 MMOL/L (98-107); CREATININE SERUM 0.81 MG/DL (0.60-1.30); GFR ESTIMATED > 60; GLUCOSE 101 MG/DL (70-105); POTASSIUM 4.4 MMOL/L (3.6-5.0); SODIUM 143 MMOL/L (135-145); TOTAL PROTEIN 7.5 GM/DL (6.4-8.2)
== END 2019-06-24 | disposition home or self-care (01) ==
LOC: ONC 08:47
PROVIDERS: ATTEND Internal Medicine Hematology & Oncology
DX: C71.2 Malignant neoplasm of temporal lobe (principal)
CPT/HCPCS: 36415; 80053; 85025; 99213

== ENCOUNTER → 2019-09-25 | Outpatient (CLI) | payer MEDICARE, BC ==
[~2019-09-25] MED LIST changes: +GADOBUTROL 10 MMOL/10 ML (GADAVIST) VIAL IV ONE; -GADOBUTROL 7.5 MMOL/7.5 ML (GADAVIST) VIAL IV ONE
--- NOTE | 2019-09-25 10:41 | Diagnostic Imaging Report ---
PROCEDURE: MR imaging of the brain with and without contrast. TECHNIQUE: Multiplanar, multisequence MR imaging of the brain was performed with and without contrast. INDICATION: Intracranial neoplasm. COMPARISON: 03/28/2019. FINDINGS: There is mild prominence of the ventricles and sulci. Note is again made of an amorphously enhancing mass in the frontal lobes bilaterally descending somewhat into the medial aspect of the left temporal lobe. When measuring in a similar fashion, the area of enhancement in the right frontal lobe has increased in size up to 7.3 x 3.2 cm compared to the previous measurement of 5.1 x 2.3 cm. The area of enhancement posterior to the large area of cystic encephalomalacia in the left frontal lobe has also increased in size. When measured in a similar fashion, it now measures 3.2 x 1.9 cm compared to the previous measurement of 2.3 x 1.3 cm. Additionally, there is increased vasogenic edema in both frontal lobes as well as into the left temporal lobe. The degree of cystic encephalomalacia in the left frontal lobe is essentially unchanged. There is no hydrocephalus. There is no significant midline shift. There is some diffusion restriction along the posterior aspect of the cystic encephalomalacia in the left frontal lobe. This either reflects hypercellularity or possibly Avastin treatment, recommend clinical correlation. There is no hemorrhage. There is no extra-axial fluid collection. The sinuses and mastoid air cells are clear. The globes and intraorbital structures are unremarkable. IMPRESSION: Further progression of the bilateral intracranial involvement by residual and/or recurrent tumor when compared to the prior examination from 03/28/2019. Additionally, the degree of vasogenic edema has increased significantly. There is an area of diffusion restriction in the left frontal lobe along the posterior aspect of the cystic encephalomalacia, likely reflecting either marked hypercellularity or Avastin treatment. Recommend clinical correlation Dictated by: Dictated on workstation # [id number]
== END ==
LOC: RAD 08:01
PROVIDERS: ATTEND Internal Medicine Hematology & Oncology
DX: C71.2 Malignant neoplasm of temporal lobe (principal)
CPT/HCPCS: 70553

== ENCOUNTER 2019-10-02 09:57 | Outpatient (RCR) | payer MEDICARE, BC ==
[2019-09-24 09:40] LABS: BASOPHILS % (AUTO) 0 % (0-10); EOSINOPHILS # (AUTO) 0.1 10^3/uL (0.0-0.3); EOSINOPHILS % (AUTO) 2 % (0-10); HEMATOCRIT 44 % (35-52); HEMOGLOBIN 14.5 G/DL (11.5-16.0); LYMPHOCYTES # (AUTO) 1.6 X 10^3 (1.0-4.0); LYMPHOCYTES % (AUTO) 27 % (12-44); MEAN CORPUSCULAR HEMOGLOBIN 32 PG (25-34); MEAN CORPUSCULAR HGB CONC 33 G/DL (32-36); MEAN CORPUSCULAR VOLUME 96 FL (80-99); MEAN PLATELET VOLUME 10.6 FL (7.4-10.4); MONOCYTES # (AUTO) 0.5 X 10^3 (0.0-1.0); MONOCYTES % (AUTO) 9 % (0-12); NEUTROPHILS # (AUTO) 3.7 X 10^3 (1.8-7.8); NEUTROPHILS % (AUTO) 62 % (42-75); PLATELET COUNT 215 10^3/uL (130-400); RED CELL DISTRIBUTION WIDTH 13.3 % (10.0-14.5); WHITE BLOOD COUNT 5.9 10^3/uL (4.3-11.0)
[2019-09-24 10:11] LABS: ALANINE AMINOTRANSFERASE 19 U/L (0-55); ALBUMIN 4.3 GM/DL (3.2-4.5); ALKALINE PHOSPHATASE 74 U/L (40-136); BILIRUBIN,TOTAL 0.4 MG/DL (0.1-1.0); BUN/CREATININE RATIO 21; CALCIUM 9.6 MG/DL (8.5-10.1); CARBON DIOXIDE 24 MMOL/L (21-32); CHLORIDE 107 MMOL/L (98-107); CREATININE SERUM 0.78 MG/DL (0.60-1.30); GFR ESTIMATED > 60; GLUCOSE 103 MG/DL (70-105); POTASSIUM 3.9 MMOL/L (3.6-5.0); SODIUM 141 MMOL/L (135-145); TOTAL PROTEIN 7.3 GM/DL (6.4-8.2)
== END 2019-12-23 | disposition home or self-care (01) ==
LOC: ONC 09:57
PROVIDERS: ATTEND Internal Medicine Hematology & Oncology
DX: C71.2 Malignant neoplasm of temporal lobe (principal); I10 Essential (primary) hypertension; E78.00 Pure hypercholesterolemia, unspecified; Z92.21 Personal history of antineoplastic chemotherapy; Z92.3 Personal history of irradiation
CPT/HCPCS: 80053; 85025; 99213

== ENCOUNTER → 2020-01-03 | Outpatient (CLI) | payer MEDICARE, BC ==
[2020-01-03 09:01] LABS: BASOPHILS % (AUTO) 0 % (0-10); EOSINOPHILS # (AUTO) 0.2 10^3/uL (0.0-0.3); EOSINOPHILS % (AUTO) 2 % (0-10); HEMATOCRIT 43 % (35-52); HEMOGLOBIN 14.6 G/DL (11.5-16.0); LYMPHOCYTES # (AUTO) 2.3 X 10^3 (1.0-4.0); LYMPHOCYTES % (AUTO) 29 % (12-44); MEAN CORPUSCULAR HEMOGLOBIN 32 PG (25-34); MEAN CORPUSCULAR HGB CONC 34 G/DL (32-36); MEAN CORPUSCULAR VOLUME 95 FL (80-99); MEAN PLATELET VOLUME 10.6 FL (7.4-10.4); MONOCYTES # (AUTO) 0.8 X 10^3 (0.0-1.0); MONOCYTES % (AUTO) 10 % (0-12); NEUTROPHILS # (AUTO) 4.6 X 10^3 (1.8-7.8); NEUTROPHILS % (AUTO) 59 % (42-75); PLATELET COUNT 240 10^3/uL (130-400); RED CELL DISTRIBUTION WIDTH 13.4 % (10.0-14.5); WHITE BLOOD COUNT 7.9 10^3/uL (4.3-11.0)
[2020-01-03 09:19] LABS: ALANINE AMINOTRANSFERASE 13 U/L (0-55); ALBUMIN 4.1 GM/DL (3.2-4.5); ALKALINE PHOSPHATASE 67 U/L (40-136); BILIRUBIN,TOTAL 0.4 MG/DL (0.1-1.0); BUN/CREATININE RATIO 17; CALCIUM 9.4 MG/DL (8.5-10.1); CARBON DIOXIDE 24 MMOL/L (21-32); CHLORIDE 108 MMOL/L (98-107); CREATININE SERUM 0.77 MG/DL (0.60-1.30); GFR ESTIMATED > 60; GLUCOSE 111 MG/DL (70-105); POTASSIUM 3.7 MMOL/L (3.6-5.0); SODIUM 144 MMOL/L (135-145)
== END ==
LOC: EDSTATUS 12-24 13:01 → ONC 08:52
PROVIDERS: ATTEND Internal Medicine Hematology & Oncology
DX: C71.2 Malignant neoplasm of temporal lobe (principal); Z98.890 Other specified postprocedural states
CPT/HCPCS: 80053; 85025; 99213

== ENCOUNTER 2020-06-18 14:53 | Outpatient (RCR) | payer MEDICARE, BC ==
[2020-03-26 09:59] LABS: BASOPHILS % (AUTO) 0 % (0-10); EOSINOPHILS # (AUTO) 0.1 10^3/uL (0.0-0.3); EOSINOPHILS % (AUTO) 1 % (0-10); HEMATOCRIT 40 % (35-52); HEMOGLOBIN 13.8 G/DL (11.5-16.0); LYMPHOCYTES # (AUTO) 1.7 X 10^3 (1.0-4.0); LYMPHOCYTES % (AUTO) 24 % (12-44); MEAN CORPUSCULAR HEMOGLOBIN 33 PG (25-34); MEAN CORPUSCULAR HGB CONC 34 G/DL (32-36); MEAN CORPUSCULAR VOLUME 96 FL (80-99); MEAN PLATELET VOLUME 10.6 FL (7.4-10.4); MONOCYTES # (AUTO) 0.6 X 10^3 (0.0-1.0); MONOCYTES % (AUTO) 9 % (0-12); NEUTROPHILS # (AUTO) 4.7 X 10^3 (1.8-7.8); NEUTROPHILS % (AUTO) 66 % (42-75); PLATELET COUNT 224 10^3/uL (130-400); WHITE BLOOD COUNT 7.1 10^3/uL (4.3-11.0)
[2020-03-26 10:17] LABS: ALANINE AMINOTRANSFERASE 35 U/L (0-55); ALKALINE PHOSPHATASE 62 U/L (40-136); BILIRUBIN,TOTAL 0.7 MG/DL (0.1-1.0); BUN/CREATININE RATIO 18; CARBON DIOXIDE 25 MMOL/L (21-32); CHLORIDE 107 MMOL/L (98-107); CREATININE SERUM 0.68 MG/DL (0.60-1.30); GFR ESTIMATED > 60; GLUCOSE 93 MG/DL (70-105); POTASSIUM 3.4 MMOL/L (3.6-5.0); SODIUM 143 MMOL/L (135-145); TOTAL PROTEIN 6.9 GM/DL (6.4-8.2)
[2020-05-06 14:52] LABS: BASOPHILS % (AUTO) 0 % (0-10); EOSINOPHILS # (AUTO) 0.1 10^3/uL (0.0-0.3); EOSINOPHILS % (AUTO) 1 % (0-10); HEMATOCRIT 40 % (35-52); HEMOGLOBIN 13.6 g/dL (11.5-16.0); LYMPHOCYTES # (AUTO) 1.8 10^3/uL (1.0-4.0); LYMPHOCYTES % (AUTO) 25 % (12-44); MEAN CORPUSCULAR HEMOGLOBIN 33 pg (25-34); MEAN CORPUSCULAR HGB CONC 34 g/dL (32-36); MEAN CORPUSCULAR VOLUME 99 fL (80-99); MEAN PLATELET VOLUME 11.3 fL (9.0-12.2); MONOCYTES # (AUTO) 0.6 10^3/uL (0.0-1.0); MONOCYTES % (AUTO) 9 % (0-12); NEUTROPHILS # (AUTO) 4.6 10^3/uL (1.8-7.8); NEUTROPHILS % (AUTO) 65 % (42-75); PLATELET COUNT 196 10^3/uL (130-400); WHITE BLOOD COUNT 7.1 10^3/uL (4.3-11.0)
[2020-05-06 15:46] LABS: BUN/CREATININE RATIO 18; CALCIUM 9.3 MG/DL (8.5-10.1); CARBON DIOXIDE 25 MMOL/L (21-32); CHLORIDE 105 MMOL/L (98-107); CREATININE SERUM 0.73 MG/DL (0.60-1.30); GFR ESTIMATED > 60; GLUCOSE 91 MG/DL (70-105); POTASSIUM 3.7 MMOL/L (3.6-5.0); SODIUM 143 MMOL/L (135-145)
[2020-05-20 10:53] LABS: BASOPHILS % (AUTO) 1 % (0-10); EOSINOPHILS # (AUTO) 0.1 10^3/uL (0.0-0.3); EOSINOPHILS % (AUTO) 2 % (0-10); HEMATOCRIT 40 % (35-52); HEMOGLOBIN 13.3 g/dL (11.5-16.0); LYMPHOCYTES # (AUTO) 1.9 10^3/uL (1.0-4.0); LYMPHOCYTES % (AUTO) 27 % (12-44); MEAN CORPUSCULAR HEMOGLOBIN 33 pg (25-34); MEAN CORPUSCULAR HGB CONC 33 g/dL (32-36); MEAN CORPUSCULAR VOLUME 100 fL (80-99); MEAN PLATELET VOLUME 11.4 fL (9.0-12.2); MONOCYTES # (AUTO) 0.8 10^3/uL (0.0-1.0); MONOCYTES % (AUTO) 11 % (0-12); NEUTROPHILS # (AUTO) 4.2 10^3/uL (1.8-7.8); NEUTROPHILS % (AUTO) 60 % (42-75); PLATELET COUNT 207 10^3/uL (130-400); WHITE BLOOD COUNT 7.1 10^3/uL (4.3-11.0)
[2020-05-20 11:15] LABS: ALANINE AMINOTRANSFERASE 53 U/L (0-55); ALBUMIN 4.1 GM/DL (3.2-4.5); ALKALINE PHOSPHATASE 63 U/L (40-136); BILIRUBIN,TOTAL 0.5 MG/DL (0.1-1.0); BUN/CREATININE RATIO 19; CALCIUM 9.5 MG/DL (8.5-10.1); CARBON DIOXIDE 28 MMOL/L (21-32); CHLORIDE 112 MMOL/L (98-107); GFR ESTIMATED > 60; GLUCOSE 126 MG/DL (70-105); POTASSIUM 4.1 MMOL/L (3.6-5.0); SODIUM 151 MMOL/L (135-145); TOTAL PROTEIN 6.8 GM/DL (6.4-8.2)
[2020-06-03 14:09] LABS: BASOPHILS % (AUTO) 0 % (0-10); EOSINOPHILS # (AUTO) 0.1 10^3/uL (0.0-0.3); EOSINOPHILS % (AUTO) 2 % (0-10); HEMATOCRIT 39 % (35-52); HEMOGLOBIN 13.4 g/dL (11.5-16.0); LYMPHOCYTES # (AUTO) 1.1 10^3/uL (1.0-4.0); LYMPHOCYTES % (AUTO) 15 % (12-44); MEAN CORPUSCULAR HEMOGLOBIN 34 pg (25-34); MEAN CORPUSCULAR HGB CONC 34 g/dL (32-36); MEAN CORPUSCULAR VOLUME 98 fL (80-99); MEAN PLATELET VOLUME 11.1 fL (9.0-12.2); MONOCYTES # (AUTO) 0.7 10^3/uL (0.0-1.0); MONOCYTES % (AUTO) 9 % (0-12); NEUTROPHILS # (AUTO) 5.3 10^3/uL (1.8-7.8); NEUTROPHILS % (AUTO) 74 % (42-75); PLATELET COUNT 196 10^3/uL (130-400); WHITE BLOOD COUNT 7.2 10^3/uL (4.3-11.0)
[2020-06-03 14:24] LABS: BUN/CREATININE RATIO 15; CALCIUM 8.9 MG/DL (8.5-10.1); CARBON DIOXIDE 29 MMOL/L (21-32); CHLORIDE 102 MMOL/L (98-107); CREATININE SERUM 0.72 MG/DL (0.60-1.30); GFR ESTIMATED > 60; GLUCOSE 98 MG/DL (70-105); POTASSIUM 3.8 MMOL/L (3.6-5.0); SODIUM 140 MMOL/L (135-145)
[2020-06-18 15:25] LABS: BASOPHILS % (AUTO) 1 % (0-10); EOSINOPHILS % (AUTO) 1 % (0-10); HEMATOCRIT 41 % (35-52); HEMOGLOBIN 13.7 g/dL (11.5-16.0); LYMPHOCYTES # (AUTO) 1.1 10^3/uL (1.0-4.0); LYMPHOCYTES % (AUTO) 19 % (12-44); MEAN CORPUSCULAR HEMOGLOBIN 34 pg (25-34); MEAN CORPUSCULAR HGB CONC 33 g/dL (32-36); MEAN CORPUSCULAR VOLUME 101 fL (80-99); MEAN PLATELET VOLUME 11.5 fL (9.0-12.2); MONOCYTES # (AUTO) 0.6 10^3/uL (0.0-1.0); MONOCYTES % (AUTO) 9 % (0-12); NEUTROPHILS # (AUTO) 4.3 10^3/uL (1.8-7.8); NEUTROPHILS % (AUTO) 71 % (42-75); PLATELET COUNT 190 10^3/uL (130-400); WHITE BLOOD COUNT 6.1 10^3/uL (4.3-11.0)
[2020-06-18 15:26] LABS: ALANINE AMINOTRANSFERASE 86 U/L (0-55); ALBUMIN 4.1 GM/DL (3.2-4.5); ALKALINE PHOSPHATASE 57 U/L (40-136); BILIRUBIN,TOTAL 0.8 MG/DL (0.1-1.0); BUN/CREATININE RATIO 28; CALCIUM 9.7 MG/DL (8.5-10.1); CARBON DIOXIDE 26 MMOL/L (21-32); CHLORIDE 106 MMOL/L (98-107); CREATININE SERUM 0.81 MG/DL (0.60-1.30); GFR ESTIMATED > 60; GLUCOSE 120 MG/DL (70-105); POTASSIUM 3.7 MMOL/L (3.6-5.0); SODIUM 145 MMOL/L (135-145); TOTAL PROTEIN 6.8 GM/DL (6.4-8.2)
== END 2020-06-24 | disposition home or self-care (01) ==
LOC: ONC 14:53
PROVIDERS: ATTEND Internal Medicine Hematology & Oncology
DX: C71.2 Malignant neoplasm of temporal lobe (principal); Z98.890 Other specified postprocedural states; Z92.3 Personal history of irradiation
CPT/HCPCS: 80048; 80053; 83615; 85025; 99213

== ENCOUNTER → 2020-07-14 | Outpatient (CLI) | payer MEDICARE, BC ==
--- NOTE | 2020-07-14 15:48 | Diagnostic Imaging Report ---
CLINICAL INDICATION: Patient with history of anaplastic oligodendroglioma of the temporal lobe and history of brain surgery for tumor removal from temporal lobe in 2010 and 2014. Follow-up exam. Patient has no complaints at this time. EXAM: MRI of the brain performed without and with 10 cc of Gadavist IV contrast. Sequences include axial DWI, ADC map, axial gradient echo, axial T2, axial FLAIR, axial T1, axial T1 post IV contrast, coronal T1 fat-sat post IV contrast, and sagittal T1 post IV contrast. COMPARISON: MRI of the brain performed without and with IV contrast dated 03/28/2020. FINDINGS: There is interval decrease in the amorphous enhancement involving the bilateral frontal lobe regions. The amorphous marker areas measured in the right and left frontal lobe regions currently measures 6.5 cm x 3.4 cm and 1.2 cm x 2.6 cm, respectively, in the AP x transverse dimensions. Previously the right and left frontal lobe areas were measured at 7.8 cm x 4.0 cm and 1.8 cm x 3.7 cm in AP x transverse dimensions, respectively. There is interval significant decrease in the previously seen confluent high T2 signal involving the bilateral cerebral hemisphere regions (left side more than the right) with persistent moderate amount remaining. Again seen left frontal craniotomy region with resection changes of the left frontal lobe and adjacent parenchymal increased T2 signal. There is stable small area of enhancement involving the anterior left temporal lobe just inferior to the insular region which is in the area of confluent increased T2 signal involving the left temporal lobe. This area of enhancement measures grossly 9 mm x 5 mm in AP by transverse dimension. This area was partially obscured by motion artifact prior study. There is no hydrocephalus, brain herniation or midline shift. Stable chronic lacunar infarct involving the right basal ganglia region. The remainder of this exam shows no significant interval change compared to the prior study of comparison. IMPRESSION: 1: There is interval decrease in size and amount of amorphous enhancement involving the bilateral frontal lobe regions (right side more than the left). These findings may be related to posttreatment/post radiation changes. The amount of underlying neoplasm, if any in these bilateral frontal lobe regions is difficult to determine, but these areas should continue to be followed on subsequent imaging. 2: There is interval decrease in confluent increased T2 signal involving the bilateral frontal lobes and left frontal lobe regions. 3: There is stable small area of enhancement involving the anterior left temporal lobe just inferior to the insular region which is in the area of confluent increased T2 signal involving the left temporal lobe. This area of enhancement measures grossly 9 mm x 5 mm in AP x transverse dimension. This area was partially obscured by motion artifact on the prior study. 4: Again seen are left frontal craniotomy changes and resection changes of the left frontal lobe. Dictated by: Dictated on workstation # [id number]
== END ==
LOC: RAD 13:12
PROVIDERS: ATTEND Nurse Practitioner Adult Health
DX: Z12.89 Encounter for screening for malignant neoplasm of other sites (principal); C71.2 Malignant neoplasm of temporal lobe
CPT/HCPCS: 70553

== ENCOUNTER 2020-08-13 16:09 | Outpatient (RCR) | payer MEDICARE, BC ==
[2020-07-01 16:21] LABS: BASOPHILS % (AUTO) 0 % (0-10); EOSINOPHILS # (AUTO) 0.1 10^3/uL (0.0-0.3); EOSINOPHILS % (AUTO) 2 % (0-10); HEMATOCRIT 40 % (35-52); HEMOGLOBIN 13.6 g/dL (11.5-16.0); LYMPHOCYTES # (AUTO) 1.1 10^3/uL (1.0-4.0); LYMPHOCYTES % (AUTO) 27 % (12-44); MEAN CORPUSCULAR HEMOGLOBIN 34 pg (25-34); MEAN CORPUSCULAR HGB CONC 34 g/dL (32-36); MEAN CORPUSCULAR VOLUME 101 fL (80-99); MEAN PLATELET VOLUME 11.2 fL (9.0-12.2); MONOCYTES # (AUTO) 0.5 10^3/uL (0.0-1.0); MONOCYTES % (AUTO) 11 % (0-12); NEUTROPHILS # (AUTO) 2.4 10^3/uL (1.8-7.8); NEUTROPHILS % (AUTO) 59 % (42-75); PLATELET COUNT 190 10^3/uL (130-400); WHITE BLOOD COUNT 4.1 10^3/uL (4.3-11.0)
[2020-07-01 16:31] LABS: BUN/CREATININE RATIO 20; CALCIUM 8.9 MG/DL (8.5-10.1); CARBON DIOXIDE 26 MMOL/L (21-32); CHLORIDE 104 MMOL/L (98-107); CREATININE SERUM 0.66 MG/DL (0.60-1.30); GFR ESTIMATED > 60; GLUCOSE 109 MG/DL (70-105); POTASSIUM 3.9 MMOL/L (3.6-5.0); SODIUM 142 MMOL/L (135-145)
[2020-07-14 13:15] LABS: BASOPHILS % (AUTO) 0 % (0-10); EOSINOPHILS # (AUTO) 0.1 10^3/uL (0.0-0.3); EOSINOPHILS % (AUTO) 2 % (0-10); HEMATOCRIT 42 % (35-52); HEMOGLOBIN 14.1 g/dL (11.5-16.0); LYMPHOCYTES % (AUTO) 21 % (12-44); MEAN CORPUSCULAR HEMOGLOBIN 34 pg (25-34); MEAN CORPUSCULAR HGB CONC 34 g/dL (32-36); MEAN CORPUSCULAR VOLUME 101 fL (80-99); MEAN PLATELET VOLUME 10.6 fL (9.0-12.2); MONOCYTES # (AUTO) 0.5 10^3/uL (0.0-1.0); MONOCYTES % (AUTO) 10 % (0-12); NEUTROPHILS # (AUTO) 3.2 10^3/uL (1.8-7.8); NEUTROPHILS % (AUTO) 67 % (42-75); PLATELET COUNT 197 10^3/uL (130-400); WHITE BLOOD COUNT 4.8 10^3/uL (4.3-11.0)
[2020-07-14 13:39] LABS: ALANINE AMINOTRANSFERASE 30 U/L (0-55); ALBUMIN 3.9 GM/DL (3.2-4.5); ALKALINE PHOSPHATASE 56 U/L (40-136); BILIRUBIN,TOTAL 0.5 MG/DL (0.1-1.0); BUN/CREATININE RATIO 20; CALCIUM 9.5 MG/DL (8.5-10.1); CARBON DIOXIDE 27 MMOL/L (21-32); CHLORIDE 106 MMOL/L (98-107); CREATININE SERUM 0.69 MG/DL (0.60-1.30); GFR ESTIMATED > 60; GLUCOSE 111 MG/DL (70-105); POTASSIUM 4.1 MMOL/L (3.6-5.0); SODIUM 144 MMOL/L (135-145); TOTAL PROTEIN 6.8 GM/DL (6.4-8.2)
[2020-08-13 15:25] LABS: BASOPHILS % (AUTO) 1 % (0-10); EOSINOPHILS # (AUTO) 0.1 10^3/uL (0.0-0.3); EOSINOPHILS % (AUTO) 2 % (0-10); HEMATOCRIT 41 % (35-52); HEMOGLOBIN 13.7 g/dL (11.5-16.0); LYMPHOCYTES # (AUTO) 0.6 X 10^3 (1.0-4.0); LYMPHOCYTES % (AUTO) 12 % (12-44); MEAN CORPUSCULAR HEMOGLOBIN 34 pg (25-34); MEAN CORPUSCULAR HGB CONC 34 g/dL (32-36); MEAN CORPUSCULAR VOLUME 101 fL (80-99); MEAN PLATELET VOLUME 10.4 fL (9.0-12.2); MONOCYTES # (AUTO) 0.5 X 10^3 (0.0-1.0); MONOCYTES % (AUTO) 10 % (0-12); NEUTROPHILS # (AUTO) 3.7 X 10^3 (1.8-7.8); NEUTROPHILS % (AUTO) 75 % (42-75); PLATELET COUNT 209 10^3/uL (130-400); WHITE BLOOD COUNT 4.9 10^3/uL (4.3-11.0)
[2020-08-13 15:42] LABS: ALANINE AMINOTRANSFERASE 13 U/L (0-55); ALBUMIN 3.6 GM/DL (3.2-4.5); ALKALINE PHOSPHATASE 52 U/L (40-136); BILIRUBIN,TOTAL 0.4 MG/DL (0.1-1.0); BUN/CREATININE RATIO 18; CALCIUM 8.9 MG/DL (8.5-10.1); CARBON DIOXIDE 29 MMOL/L (21-32); CHLORIDE 103 MMOL/L (98-107); CREATININE SERUM 0.74 MG/DL (0.60-1.30); GFR ESTIMATED > 60; GLUCOSE 99 MG/DL (70-105); SODIUM 140 MMOL/L (135-145); TOTAL PROTEIN 6.5 GM/DL (6.4-8.2)
== END 2020-08-29 11:10 | disposition home or self-care (01) ==
LOC: ONC 16:09
PROVIDERS: ATTEND Internal Medicine Hematology & Oncology
DX: C71.2 Malignant neoplasm of temporal lobe (principal); Z98.890 Other specified postprocedural states; Z92.3 Personal history of irradiation
CPT/HCPCS: 80048; 80053; 83615; 85025; 99213

== ENCOUNTER 2020-10-14 15:08 | Emergency (ER) | payer MEDICARE ==
[~2020-10-14] VITALS: Ht 175 cm; Wt 52.0 kg
--- NOTE | 2020-10-14 17:22 | Diagnostic Imaging Report ---
INDICATION: Weakness. TIME OF EXAM: 05:18 p.m. COMPARISON: No prior studies are available for comparison. FINDINGS: Heart size is normal. There appears to be some infiltrate or atelectasis in the left perihilar region. The right lung is clear. No effusion or pneumothorax is seen. IMPRESSION: Left perihilar infiltrate or atelectasis. Dictated by: Dictated on workstation # [id number]
[2020-10-14 17:30] LABS: BASOPHILS % (AUTO) 0 % (0-10); EOSINOPHILS % (AUTO) 1 % (0-10); HEMATOCRIT 36 % (35-52); LYMPHOCYTES # (AUTO) 0.4 10^3/uL (1.0-4.0); LYMPHOCYTES % (AUTO) 7 % (12-44); MEAN CORPUSCULAR HEMOGLOBIN 35 pg (25-34); MEAN CORPUSCULAR HGB CONC 34 g/dL (32-36); MEAN CORPUSCULAR VOLUME 103 fL (80-99); MEAN PLATELET VOLUME 11.2 fL (9.0-12.2); MONOCYTES # (AUTO) 0.7 10^3/uL (0.0-1.0); MONOCYTES % (AUTO) 12 % (0-12); NEUTROPHILS # (AUTO) 4.8 10^3/uL (1.8-7.8); NEUTROPHILS % (AUTO) 79 % (42-75); PLATELET COUNT 241 10^3/uL (130-400); WHITE BLOOD COUNT 6.1 10^3/uL (4.3-11.0)
[2020-10-14 17:35] LABS: BILIRUBIN,URINE NEGATIVE (NEGATIVE); CLARITY,URINE CLEAR; COLOR,URINE YELLOW; GLUCOSE, URINE (UA) NEGATIVE (NEGATIVE); KETONES,URINE TRACE (NEGATIVE); LEUKOCYTE ESTERASE ,URINE 1+ (NEGATIVE); NITRITE,URINE POSITIVE (NEGATIVE); PH,URINE 5.5 (5-9); PROTEIN,URINE TRACE (NEGATIVE)
[2020-10-14 17:41] LABS: ALBUMIN 3.6 GM/DL (3.2-4.5); CHLORIDE 103 MMOL/L (98-107); POTASSIUM 5.4 MMOL/L (3.6-5.0); SODIUM 139 MMOL/L (135-145)
[2020-10-14 17:42] LABS: CALCIUM 8.6 MG/DL (8.5-10.1)
[2020-10-14 17:43] LABS: GLUCOSE 119 MG/DL (70-105); TOTAL PROTEIN 7.7 GM/DL (6.4-8.2)
[2020-10-14 17:44] LABS: CARBON DIOXIDE 26 MMOL/L (21-32)
[2020-10-14 17:45] LABS: BACTERIA,URINE LARGE /HPF; WBC,URINE 25-50 /HPF
[2020-10-14 17:45] LABS: BILIRUBIN,TOTAL 0.3 MG/DL (0.1-1.0)
[2020-10-14 17:47] LABS: ALKALINE PHOSPHATASE 57 U/L (40-136); CREATININE SERUM 0.72 MG/DL (0.60-1.30); GFR ESTIMATED > 60
[2020-10-14 17:48] LABS: BUN/CREATININE RATIO 28
[2020-10-14 17:50] LABS: ALANINE AMINOTRANSFERASE 24 U/L (0-55); MAGNESIUM 1.9 MG/DL (1.6-2.4)
[2020-10-14 17:58] LABS: LYMPHOCYTES % (MANUAL) 7 %; MONOCYTES % (MANUAL) 10 %; NEUTROPHILS % (MANUAL) 83 %; RBC MORPH NORMAL
[2020-10-14] MEDS ORDERED: cefTRIAXone FOR IV USE 1,000 MG in WATER (STERILE) FOR INJECTION 10 ML IV ONE (18:15)
[2020-10-14] MEDS ORDERED: NS IV 500 ML 500 ML IV ONE (18:15)
[2020-10-14] MEDS ORDERED: CEFD300C3 PO (18:33)
--- NOTE | 2020-10-14 18:34 | ED General ---
General Chief Complaint: General Problems/Pain Stated Complaint: WEAK/UNBLE TO WALK Nursing Triage Note: PT TO FT[facility] PER W/C W SPOUSE, SPOUSE STATES UNABLE TO WALK ALONE SINCE YESTERDAY, SPOUSE ANSWERING MOST QUESTIONS FOR PT. PT HAS BRAIN CA AND IS BEING TREATED AT [facility] [place]. SENT OVER BY [facility] BECAUSE TEST WOULD GET BACK SOONER. PT WAS SCHEDULED FOR MRI TODAY, DID NOT GET. Nursing Sepsis Screen: No Definite Risk Source of Information: Patient, Family Exam Limitations: No Limitations History of Present Illness Date Seen by Provider: Oct 14, 2020 Time Seen by Provider: 15:47 Initial Comments This 60-year-old woman is brought to the emergency room by her due to decreased mobility and lower extremity swelling. She was scheduled to have an MRI for surveillance of her brain tumor through the [facility] today. However, she was diverted to the emergency room for acute work-up due to her mobility issues and swelling. Her reports she has not been very active over the last couple of days. She has had decreased oral intake. He believes the swelling in her legs is secondary to being sedentary. She has no specific complaints at this time. states she seems to be be hallucinating the past couple of days. She is currently receiving oral chemotherapy managed by [facility]. I discussed the situation with Dr. Steele who requests that we do a basic evaluation of her and screen her for infectious issues. Allergies and Home Medications Allergies Coded Allergies: No Known Drug Allergies (Unverified , 08/05/14) Home Medications Cefdinir 300 Mg Capsule, 300 MG PO BID Prescribed by: SARITHA ARROYO on 10/14/20 5363 Patient Home Medication List Home Medication List Reviewed: Yes Review of Systems Review of Systems Constitutional: see HPI, weakness EENTM: no symptoms reported Respiratory: no symptoms reported Cardiovascular: no symptoms reported Gastrointestinal: no symptoms reported Genitourinary: no symptoms reported : No Musculoskeletal: no symptoms reported Skin: no symptoms reported Psychiatric/Neurological: See HPI Hematologic/Lymphatic: No Symptoms Reported Past [id number]-[id number]-Akvxra Hx Past Med/Social Hx: Reviewed Nursing Past Med/Soc Hx Patient Social History Alcohol Use: Denies Use Smoking Status: Current Everyday Smoker Type Used: Cigars Recent Infectious Disease Expo: No Recent Hopitalizations: No Seasonal Allergies Seasonal Allergies: No Past Medical History Surgeries: No (Unknown) Respiratory: No Cardiac: No Neurological: Yes Brain Tumor : No Genitourinary: No Gastrointestinal: No Musculoskeletal: No Endocrine: No HEENT: No Cancer: Yes Brain Did You Recieve Any Treatments: Yes What Type of Treatment Did You: Chemotherapy Psychosocial: No Integumentary: No Blood Disorders: No Adverse Reaction/Blood Tranf: No Physical Exam Vital Signs Vital Signs - First Documented 10/14/20 10/14/20 15:49 19:39 Temp 36.9 Pulse 83 Resp 18 B/P (MAP) 116/78 (91) Pulse Ox 98 O2 Delivery Room Air Capillary Refill : Less Than 3 Seconds Height, Weight, BMI Height: '" Weight: lbs. oz. kg; 16.00 BMI Method: General Appearance: No Apparent Distress, WD/WN, Thin HEENT: PERRL/EOMI, Normal ENT Inspection, Pharynx Normal Neck: Normal Inspection Respiratory: Lungs Clear, Normal Breath Sounds Cardiovascular: Regular Rate, Rhythm, No Edema, No Murmur Gastrointestinal: Non Tender, Soft Extremity: Swelling, Other (Significant soft pitting edema of the lower extremities equal bilaterally. 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 Appears to be having visual hallucinations but denies them.) Skin: Normal Color, Warm/Dry Progress/Results/Core Measures Suspected Sepsis Recent Fever Within 48 Hours: No Infection Criteria Present: None New/Unexplained Altered Menta: No Sepsis Screen: No Definite Risk SIRS Temperature: Pulse: 83 Respiratory Rate: 18 Laboratory Tests 10/14/20 17:20: White Blood Count 6.1 Blood Pressure 116 /78 Mean: 91 Laboratory Tests 10/14/20 17:20: Creatinine 0.72, Platelet Count 241, Total Bilirubin 0.3 Results/Orders Lab Results Laboratory Tests Test 10/14/20 17:20 10/14/20 17:27 Range/Units White Blood Count 6.1 4.3-11.0 10^3/uL Red Blood Count 3.45 L 3.80-5.11 10^6/uL Hemoglobin 12.0 11.5-16.0 g/dL Hematocrit 36 35-52 % Mean Corpuscular Volume 103 H 80-99 fL Mean Corpuscular Hemoglobin 35 H 25-34 pg Mean Corpuscular Hemoglobin Concent 34 32-36 g/dL Red Cell Distribution Width 13.8 10.0-14.5 % Platelet Count 241 130-400 10^3/uL Mean Platelet Volume 11.2 9.0-12.2 fL Immature Granulocyte % (Auto) 0 % Neutrophils (%) (Auto) 79 H 42-75 % Lymphocytes (%) (Auto) 7 L 12-44 % Monocytes (%) (Auto) 12 0-12 % Eosinophils (%) (Auto) 1 0-10 % Basophils (%) (Auto) 0 0-10 % Neutrophils # (Auto) 4.8 1.8-7.8 10^3/uL Lymphocytes # (Auto) 0.4 L 1.0-4.0 10^3/uL Monocytes # (Auto) 0.7 0.0-1.0 10^3/uL Eosinophils # (Auto) 0.0 0.0-0.3 10^3/uL Basophils # (Auto) 0.0 0.0-0.1 10^3/uL Immature Granulocyte # (Auto) 0.0 0.0-0.1 10^3/uL Neutrophils % (Manual) 83 % Lymphocytes % (Manual) 7 % Monocytes % (Manual) 10 % Blood Morphology Comment NORMAL Sodium Level 139 135-145 MMOL/L Potassium Level 5.4 H 3.6-5.0 MMOL/L Chloride Level 103 98-107 MMOL/L Carbon Dioxide Level 26 21-32 MMOL/L Anion Gap 10 5-14 MMOL/L Blood Urea Nitrogen 20 H 7-18 MG/DL Creatinine 0.72 0.60-1.30 MG/DL Estimat Glomerular Filtration Rate > 60 BUN/Creatinine Ratio 28 Glucose Level 119 H 70-105 MG/DL Calcium Level 8.6 8.5-10.1 MG/DL Corrected Calcium 8.9 8.5-10.1 MG/DL Magnesium Level 1.9 1.6-2.4 MG/DL Total Bilirubin 0.3 0.1-1.0 MG/DL Aspartate Amino Transf (AST/SGOT) 75 H 5-34 U/L Alanine Aminotransferase (ALT/SGPT) 24 0-55 U/L Alkaline Phosphatase 57 40-136 U/L B-Type Natriuretic Peptide 10.8 <100.0 PG/ML Total Protein 7.7 6.4-8.2 GM/DL Albumin 3.6 3.2-4.5 GM/DL Urine Color YELLOW Urine Clarity CLEAR Urine pH 5.5 5-9 Urine Specific [place] >=1.030 1.016-1.022 Urine Protein TRACE H NEGATIVE Urine Glucose (UA) NEGATIVE NEGATIVE Urine Ketones TRACE H NEGATIVE Urine Nitrite POSITIVE H NEGATIVE Urine Bilirubin NEGATIVE NEGATIVE Urine Urobilinogen 0.2 < = 1.0 MG/DL Urine Leukocyte Esterase 1+ H NEGATIVE Urine RBC (Auto) 2+ H NEGATIVE Urine RBC NONE /HPF Urine WBC 25-50 H /HPF Urine Squamous Epithelial Cells NONE /HPF Urine Crystals NONE /LPF Urine Bacteria LARGE H /HPF Urine Casts NONE /LPF Urine Mucus LARGE H /LPF Urine Culture Indicated YES My Orders Orders - SARITHA SANTIAGO MD Cbc With Automated Diff (10/14/20 15:47) Comprehensive Metabolic Panel (10/14/20 15:47) Magnesium (10/14/20 15:47) Ua Culture If Indicated (10/14/20 15:47) Ed Iv/Invasive Line Start (10/14/20 15:47) BNP (10/14/20 17:02) Chest 1 View, Ap/Pa Only (10/14/20 17:04) Manual Differential (10/14/20 17:20) Urine Culture (10/14/20 17:27) Ceftriaxone For Iv Use (Rocephin For I (10/14/20 18:15) Ns Iv 500 Ml (Sodium Chloride 0.9%) (10/14/20 18:15) Medications Given in ED Current Medications Medications Dose Ordered Sig/Arabella Route Start Time Stop Time Status Last Admin Dose Admin Ceftriaxone Sodium 1000 mg/ Sterile Water 10 ml @ 200 mls/hr ONCE ONCE IV 10/14/20 18:15 10/14/20 18:17 DC 10/14/20 18:22 200 MLS/HR Sodium Chloride 500 ml @ 0 mls/hr Q0M ONCE IV 10/14/20 18:15 10/14/20 18:16 DC 10/14/20 18:22 500 MLS/HR Vital Signs/I&O 10/14/20 10/14/20 15:49 19:39 Temp 36.9 36.9 Pulse 83 78 Resp 18 16 B/P (MAP) 116/78 (91) 115/72 (91) Pulse Ox 98 99 O2 Delivery Room Air 10/15/20 00:00 Intake Total 510 ml Balance 510 ml Capillary Refill : Less Than 3 Seconds Blood Pressure Mean: 91 Progress Note : Progress Note Patient was seen and evaluated. Work-up was positive for urinary tract infect ion and possibly a slight basilar pneumonia. Vital signs were stable. Patient did not appear septic. She was treated with a gram of Rocephin and 500 mL normal saline as she was thought to be intravascularly depleted and her potassium was slightly elevated. Diagnostic Imaging Diagonstic Imaging: Xray Plain Films/CT/US/NM/MRI: chest Comments NAME: NOLAN SCHAEFFER MED REC#: [id number] PT STATUS: REG ER : 1960 PHYSICIAN: SARITHA SANTIAGO MD ADMIT DATE: 10/14/20/ER Signed Date of Exam:10/14/20 CHEST 1 VIEW, AP/PA ONLY INDICATION: Weakness. TIME OF EXAM: 05:18 p.m. COMPARISON: No prior studies are available for comparison. FINDINGS: Heart size is normal. There appears to be some infiltrate or atelectasis in the left perihilar region. The right lung is clear. No effusion or pneumothorax is seen. IMPRESSION: Left perihilar infiltrate or atelectasis. Dictated by: Dictated on workstation # [id number] Dict: 10/14/20 1719 Trans: 10/14/20 1836 [id number] Interpreted by: AMRIT MA MD Electronically signed by: AMRIT MA MD 10/14/20 1836 Departure Impression Primary Impression: Urinary tract infection Qualified Codes: N39.0 - Urinary tract infection, site not specified Additional Impressions: Generalized weakness Lower extremity edema Disposition: 01 HOME, SELF-CARE Condition: Improved Departure-Patient Inst. Decision time for Depature: 18:32 Referrals: URI ERVIN MD (PCP/Family) Primary Care Physician Patient Instructions: Urinary Tract Infections in Adults Add. Discharge Instructions: Encourage plenty of clear liquids. Complete your antibiotics as prescribed. Follow-up with the Cancer Center as soon as possible. Call with questions or concerns. Return to the emergency room for worsening condition. Elevate your legs above the level of the heart as much as possible. For example you may prop legs and feet up on a couple of pillows while in bed. Contact to the Cancer Center later this week to review urine culture results on or Tuesday. All discharge instructions reviewed with patient and/or family. Voiced understanding. Scripts Cefdinir (Cefdinir) 300 Mg Capsule 300 MG PO BID, #14 CAP Prov: SARITHA SANTIAGO MD 10/14/20 Copy Copies To 1: MICHAEL STEELE Copies To 2: URI ERVIN MD, JOSHUA T MD Oct 14, 2020 18:34
[2020-10-14 19:39] VITALS: BP 115/72
== END 2020-10-14 19:40 | disposition home or self-care (01) ==
LOC: EDUNIT# 15:08 → ER 15:11
DX: C71.9 Malignant neoplasm of brain, unspecified (principal); N39.0 Urinary tract infection, site not specified; R60.0 Localized edema; F17.290 Nicotine dependence, other tobacco product, uncomplicated; Z85.841 Personal history of malignant neoplasm of brain
CPT/HCPCS: 36415; 71045; 80053; 81000; 83735; 83880; 85007; 85027; 87088

== ENCOUNTER → 2020-10-22 | Outpatient (CLI) | payer MEDICARE ==
[~2020-10-22] MED LIST changes: +CEFD300C3 PO; -GADOBUTROL 10 MMOL/10 ML (GADAVIST) VIAL IV ONE; +GADOBUTROL 7.5 MMOL/7.5 ML (GADAVIST) VIAL IV ONE
--- NOTE | 2020-10-22 16:29 | Diagnostic Imaging Report ---
CLINICAL INDICATION: Patient with history of anaplastic oligodendroglioma of the temporal lobe. Patient with history of brain surgery for tumor removal from temporal lobe in 2010 and 2014. Patient has no complaints at this time. Follow-up exam. EXAM: MRI of the brain performed without and with 5 cc of Gadavist IV contrast. Sequences include axial DWI, ADC map, axial gradient echo, axial T2, axial FLAIR, axial T1, axial T1 post IV contrast, coronal T1 fat-sat post IV contrast, and sagittal T1 post IV contrast. COMPARISON: MRI of the brain performed without and with IV contrast dated 07/14/2020. FINDINGS: Again seen postoperative changes with craniotomy involving the left anterior aspect of the skull. Fluid-filled resection cavity involving left frontal lobe is again seen. There is interval decreased size of the amorphous enhancement involving the parasagittal right frontal lobe region and parasagittal left frontal lobe region adjacent to the fluid-filled resection cavity. The marker area of enhancement in the right frontal area currently measures 4.4 cm x 2.4 cm compared to prior study measured at 6.5 cm x 3.4 cm. The marker of enhancement in the left frontal region measures grossly 6 mm x 24 mm in greatest axial dimension compared to the prior study measured at 12 mm x 26 mm. There is superimposed amorphous high T1 signal in the right and left frontal lobe regions. There is also interval decrease in amount of confluent and amorphous high T2 signal involving the parasagittal right frontal lobe and left frontal lobe adjacent to the resection cavity. There is stable moderate amount of confluent high T2 signal involving the deep white matter of the left frontal lobe, subinsular region, left temporal lobe, and left parietal and temporal lobe regions. There is no hydrocephalus. There is no brain herniation midline shift. Basal cisterns are unremarkable. The [place] vascular structures show no gross abnormality as visualized. The pituitary gland, sella, and suprasellar regions are unremarkable as visualized. The extracranial soft tissues, skull, and orbits are unremarkable. Paranasal sinuses and mastoid air cells are clear. IMPRESSION: 1: Interval decreased size and amount of amorphous enhancement involving the bilateral frontal lobe regions and left frontal lobe resection cavity. There is also interval decrease confluent high T2 signal in the area as well. 2: Again seen postoperative changes with craniotomy of the anterior left head region. There is no significant change to the fluid filled CSF space in the left frontal resection area. 3: Stable confluent high T2 signal involving the rest of the right cerebral hemisphere. 4: The remainder of this exam shows no significant interval change compared to the prior study of comparison. Dictated by: Dictated on workstation # [id number]
== END ==
LOC: RAD 14:51
PROVIDERS: ATTEND Nurse Practitioner Adult Health
DX: C71.2 Malignant neoplasm of temporal lobe (principal)
CPT/HCPCS: 70553

== ENCOUNTER 2020-10-28 13:00 | Outpatient (RCR) | payer MEDICARE ==
[2020-09-10 15:06] LABS: BASOPHILS % (AUTO) 0 % (0-10); EOSINOPHILS # (AUTO) 0.1 10^3/uL (0.0-0.3); EOSINOPHILS % (AUTO) 1 % (0-10); HEMATOCRIT 41 % (35-52); HEMOGLOBIN 13.4 g/dL (11.5-16.0); LYMPHOCYTES # (AUTO) 0.3 10^3/uL (1.0-4.0); LYMPHOCYTES % (AUTO) 9 % (12-44); MEAN CORPUSCULAR HEMOGLOBIN 34 pg (25-34); MEAN CORPUSCULAR HGB CONC 33 g/dL (32-36); MEAN CORPUSCULAR VOLUME 104 fL (80-99); MEAN PLATELET VOLUME 10.2 fL (9.0-12.2); MONOCYTES # (AUTO) 0.4 10^3/uL (0.0-1.0); MONOCYTES % (AUTO) 11 % (0-12); NEUTROPHILS # (AUTO) 2.9 10^3/uL (1.8-7.8); NEUTROPHILS % (AUTO) 79 % (42-75); PLATELET COUNT 208 10^3/uL (130-400); WHITE BLOOD COUNT 3.7 10^3/uL (4.3-11.0)
[2020-09-10 15:19] LABS: ALANINE AMINOTRANSFERASE 30 U/L (0-55); ALBUMIN 3.5 GM/DL (3.2-4.5); ALKALINE PHOSPHATASE 55 U/L (40-136); BILIRUBIN,TOTAL 0.4 MG/DL (0.1-1.0); BUN/CREATININE RATIO 20; CARBON DIOXIDE 26 MMOL/L (21-32); CHLORIDE 106 MMOL/L (98-107); CREATININE SERUM 0.69 MG/DL (0.60-1.30); GFR ESTIMATED > 60; GLUCOSE 100 MG/DL (70-105); POTASSIUM 3.9 MMOL/L (3.6-5.0); SODIUM 143 MMOL/L (135-145); TOTAL PROTEIN 6.1 GM/DL (6.4-8.2)
[~2020-10-28 13:00] MED LIST changes: -GADOBUTROL 7.5 MMOL/7.5 ML (GADAVIST) VIAL IV ONE
[2020-10-28 13:17] LABS: BASOPHILS % (AUTO) 1 % (0-10); EOSINOPHILS % (AUTO) 0 % (0-10); HEMATOCRIT 38 % (35-52); HEMOGLOBIN 12.7 g/dL (11.5-16.0); LYMPHOCYTES # (AUTO) 0.2 10^3/uL (1.0-4.0); LYMPHOCYTES % (AUTO) 6 % (12-44); MEAN CORPUSCULAR HEMOGLOBIN 35 pg (25-34); MEAN CORPUSCULAR HGB CONC 33 g/dL (32-36); MEAN CORPUSCULAR VOLUME 104 fL (80-99); MEAN PLATELET VOLUME 9.4 fL (9.0-12.2); MONOCYTES # (AUTO) 0.3 10^3/uL (0.0-1.0); MONOCYTES % (AUTO) 8 % (0-12); NEUTROPHILS # (AUTO) 3.5 10^3/uL (1.8-7.8); NEUTROPHILS % (AUTO) 85 % (42-75); PLATELET COUNT 317 10^3/uL (130-400); WHITE BLOOD COUNT 4.2 10^3/uL (4.3-11.0)
[2020-10-28 13:37] LABS: ALANINE AMINOTRANSFERASE 8 U/L (0-55); ALBUMIN 3.3 GM/DL (3.2-4.5); ALKALINE PHOSPHATASE 70 U/L (40-136); BILIRUBIN,TOTAL 0.3 MG/DL (0.1-1.0); BUN/CREATININE RATIO 17; CALCIUM 8.9 MG/DL (8.5-10.1); CARBON DIOXIDE 25 MMOL/L (21-32); CHLORIDE 105 MMOL/L (98-107); CREATININE SERUM 0.71 MG/DL (0.60-1.30); GFR ESTIMATED > 60; GLUCOSE 128 MG/DL (70-105); POTASSIUM 3.6 MMOL/L (3.6-5.0); SODIUM 142 MMOL/L (135-145); TOTAL PROTEIN 6.6 GM/DL (6.4-8.2)
== END 2020-12-09 | disposition home or self-care (01) ==
LOC: ONC 13:00
PROVIDERS: ATTEND Internal Medicine Hematology & Oncology
DX: Z51.11 Encounter for antineoplastic chemotherapy (principal); C71.2 Malignant neoplasm of temporal lobe; I10 Essential (primary) hypertension; E78.00 Pure hypercholesterolemia, unspecified; Z98.890 Other specified postprocedural states; Z92.3 Personal history of irradiation; Z92.21 Personal history of antineoplastic chemotherapy
CPT/HCPCS: 80053; 85025; G0463; 83615; 84443; 99213

== ENCOUNTER → 2021-01-27 | Outpatient (CLI) | payer MEDICARE ==
[~2021-01-27] MED LIST changes: +GADOBUTROL 7.5 MMOL/7.5 ML (GADAVIST) VIAL IV ONE
--- NOTE | 2021-01-27 20:25 | Diagnostic Imaging Report ---
Clinical Indication: Patient with history of anaplastic oligodendroglioma of the temporal lobe. Patient has history of brain surgery tumor removal from the temporal lobe in 2010 and 2014. Patient has no complaints at this time. Exam: MRI of the brain performed without and with 5 cc of Gadavist IV contrast. Sequences include axial DWI, ADC map, coronal gradient echo, axial T2, axial FLAIR, axial T1, axial T1 post IV contrast, coronal T1 fat-sat post IV contrast, and sagittal T1 post IV contrast. Comparison: MRI of the brain performed without and with IV contrast dated 10/22/2020. Findings: Again seen are postoperative changes with craniotomy involving the left frontal region. Stable parenchymal resection of the left frontal lobe with resection cavity has stable size CSF resection cavity. There is no significant change to the amorphous high T2 signal involving the bilateral frontal lobes and left frontal lobe resection cavity region. There is no significant change to the nodular lobulated area involving the high left parasagittal frontal lobe resection cavity region with stable amorphous enhancement in the area. There is also high T1 signal in the region which was also noted on the prior study which may be related to blood product. There is no major change to the amorphous enhancement involving the right frontal lobe region which measures grossly 4.4 cm x 2.4 cm in AP by transverse dimensions. There are no new areas of masslike enhancement seen. There is also stable patchy and confluent high T2 signal involving the bilateral cerebral hemispheres with the left temporal lobe region affected the most. There is no significant enhancement of the left temporal lobe region. There is no hydrocephalus. Basal cisterns are unremarkable. The [place] vascular structures show no gross abnormality as visualized. The pituitary gland, sella, and suprasellar regions are unremarkable as visualized. Besides postoperative changes, the extracranial soft tissues, skull, and orbits are unremarkable. There is mild mucosal thickening involving the left maxillary sinus. IMPRESSION: 1: There are stable postop changes with left frontal craniotomy and left frontal lobe resection changes. There is stable amorphous enhancement involving the right frontal lobe and high parasagittal left frontal lobe resection cavity. 2: There is stable high T2 signal involving the bilateral frontal lobe regions and adjacent to the left frontal lobe resection cavity. 3: Stable high T2 signal without enhancement involving the left temporal lobe. Dictated by: Dictated on workstation # [id number]
== END ==
LOC: RAD 14:45
PROVIDERS: ATTEND Internal Medicine Hematology & Oncology
DX: C71.2 Malignant neoplasm of temporal lobe (principal)
CPT/HCPCS: 70553

== ENCOUNTER 2021-02-03 14:01 | Outpatient (RCR) | payer MEDICARE ==
[2020-12-30 14:45] LABS: BASOPHILS % (AUTO) 1 % (0-10); EOSINOPHILS % (AUTO) 1 % (0-10); HEMATOCRIT 34 % (35-52); HEMOGLOBIN 11.4 g/dL (11.5-16.0); LYMPHOCYTES # (AUTO) 0.3 X 10^3 (1.0-4.0); LYMPHOCYTES % (AUTO) 15 % (12-44); MEAN CORPUSCULAR HEMOGLOBIN 34 pg (25-34); MEAN CORPUSCULAR HGB CONC 33 g/dL (32-36); MEAN CORPUSCULAR VOLUME 103 fL (80-99); MEAN PLATELET VOLUME 9.7 fL (9.0-12.2); MONOCYTES # (AUTO) 0.3 X 10^3 (0.0-1.0); MONOCYTES % (AUTO) 13 % (0-12); NEUTROPHILS # (AUTO) 1.6 X 10^3 (1.8-7.8); NEUTROPHILS % (AUTO) 70 % (42-75); PLATELET COUNT 222 10^3/uL (130-400); WHITE BLOOD COUNT 2.3 10^3/uL (4.3-11.0)
[2020-12-30 15:06] LABS: ALANINE AMINOTRANSFERASE 7 U/L (0-55); ALBUMIN 3.3 GM/DL (3.2-4.5); ALKALINE PHOSPHATASE 62 U/L (40-136); BILIRUBIN,TOTAL 0.4 MG/DL (0.1-1.0); BUN/CREATININE RATIO 16; CALCIUM 8.3 MG/DL (8.5-10.1); CARBON DIOXIDE 27 MMOL/L (21-32); CHLORIDE 104 MMOL/L (98-107); CREATININE SERUM 0.69 MG/DL (0.60-1.30); GFR ESTIMATED > 60; GLUCOSE 121 MG/DL (70-105); POTASSIUM 3.6 MMOL/L (3.6-5.0); SODIUM 138 MMOL/L (135-145)
[~2021-02-03 14:01] MED LIST changes: -GADOBUTROL 7.5 MMOL/7.5 ML (GADAVIST) VIAL IV ONE
[2021-02-03 14:09] LABS: BASOPHILS % (AUTO) 0 % (0-10); EOSINOPHILS # (AUTO) 0.1 10^3/uL (0.0-0.3); EOSINOPHILS % (AUTO) 2 % (0-10); HEMATOCRIT 35 % (35-52); HEMOGLOBIN 11.8 g/dL (11.5-16.0); LYMPHOCYTES # (AUTO) 0.5 10^3/uL (1.0-4.0); LYMPHOCYTES % (AUTO) 17 % (12-44); MEAN CORPUSCULAR HEMOGLOBIN 34 pg (25-34); MEAN CORPUSCULAR HGB CONC 33 g/dL (32-36); MEAN CORPUSCULAR VOLUME 103 fL (80-99); MEAN PLATELET VOLUME 9.8 fL (9.0-12.2); MONOCYTES # (AUTO) 0.3 10^3/uL (0.0-1.0); MONOCYTES % (AUTO) 9 % (0-12); NEUTROPHILS # (AUTO) 2.2 10^3/uL (1.8-7.8); NEUTROPHILS % (AUTO) 71 % (42-75); PLATELET COUNT 182 10^3/uL (130-400); WHITE BLOOD COUNT 3.1 10^3/uL (4.3-11.0)
[2021-02-03 14:28] LABS: ALANINE AMINOTRANSFERASE 18 U/L (0-55); ALBUMIN 3.5 GM/DL (3.2-4.5); ALKALINE PHOSPHATASE 60 U/L (40-136); BILIRUBIN,TOTAL 0.3 MG/DL (0.1-1.0); BUN/CREATININE RATIO 19; CALCIUM 8.7 MG/DL (8.5-10.1); CARBON DIOXIDE 29 MMOL/L (21-32); CHLORIDE 105 MMOL/L (98-107); CREATININE SERUM 0.63 MG/DL (0.60-1.30); GFR ESTIMATED > 60; GLUCOSE 94 MG/DL (70-105); POTASSIUM 3.7 MMOL/L (3.6-5.0); SODIUM 140 MMOL/L (135-145); TOTAL PROTEIN 6.1 GM/DL (6.4-8.2)
== END 2021-03-30 | disposition home or self-care (01) ==
LOC: ONC 14:01
PROVIDERS: ATTEND Internal Medicine Hematology & Oncology
DX: Z51.11 Encounter for antineoplastic chemotherapy (principal); C71.2 Malignant neoplasm of temporal lobe; I10 Essential (primary) hypertension; E78.00 Pure hypercholesterolemia, unspecified; Z92.3 Personal history of irradiation; Z92.21 Personal history of antineoplastic chemotherapy; Z79.890 Hormone replacement therapy; Z79.899 Other long term (current) drug therapy; Z87.891 Personal history of nicotine dependence
CPT/HCPCS: 80053; 85025; G0463; 83615; 99213

== ENCOUNTER → 2021-05-07 | Outpatient (CLI) | payer MEDICARE ==
[~2021-05-07] MED LIST changes: +GADOBUTROL 7.5 MMOL/7.5 ML (GADAVIST) VIAL IV ONE
--- NOTE | 2021-05-07 18:12 | Diagnostic Imaging Report ---
PROCEDURE: MR imaging of the brain with and without contrast. TECHNIQUE: Multiplanar, multisequence MR imaging of the brain was performed with and without contrast. INDICATION: Multiple prior brain surgeries in 2010 and 2014 for a temporal lobe brain tumor. Follow-up malignant neoplasm. History of anaplastic oligodendroglioma. COMPARISON: 01/27/2021 FINDINGS: The ventricles and cortical sulci appear mildly prominent, may be from generalized parenchymal volume loss. There is no midline shift. No acute ischemia is seen. Postsurgical craniotomy changes in the left hemisphere are again seen, with a large stable CSF cavity in the left frontal region. There is irregular heterogeneous T2 bright signal in the right frontal region which appears unchanged since the prior exam, with mild T1-weighted hyperintensity which could represent laminar necrosis or blood products, but appears stable since the prior study. There is T2 hyperintensity throughout the left periventricular white matter and extending into the left frontal lobe. This appears unchanged from the prior exam. Small foci of susceptibility artifact are noted, from prior surgery. These appear stable. There are areas of heterogeneous irregular enhancement in the medial right frontal lobe. This measures about 4.3 cm AP and 2.4 cm transverse when measured in the same manner as the prior exam and appears stable. Mild irregular enhancement is seen in the left frontal lobe posterior to the resection site, which appears unchanged. No new areas of masslike or nodular enhancement are seen.. No other masses are identified. No acute hemorrhage is seen. The paranasal sinuses demonstrate normal signal. IMPRESSION: 1. Postsurgical changes from a left craniotomy and frontal lobe resection with unchanged heterogeneous T2 hyperintense enhancement in the bilateral frontal lobes. 2. These findings appear stable since the prior study. No new masslike or nodular enhancement is seen to suggest recurrence. Dictated by: Dictated on workstation # [id number]
== END ==
LOC: RAD 16:15
PROVIDERS: ATTEND Internal Medicine Hematology & Oncology
DX: C71.2 Malignant neoplasm of temporal lobe (principal)
CPT/HCPCS: 70553

== ENCOUNTER 2021-05-13 15:05 | Outpatient (RCR) | payer MEDICARE ==
[~2021-05-13 15:05] MED LIST changes: -GADOBUTROL 7.5 MMOL/7.5 ML (GADAVIST) VIAL IV ONE
[2021-05-13 15:12] LABS: BASOPHILS % (AUTO) 0 % (0-10); EOSINOPHILS % (AUTO) 1 % (0-10); HEMATOCRIT 40 % (35-52); HEMOGLOBIN 13.1 g/dL (11.5-16.0); LYMPHOCYTES # (AUTO) 0.5 10^3/uL (1.0-4.0); LYMPHOCYTES % (AUTO) 20 % (12-44); MEAN CORPUSCULAR HEMOGLOBIN 34 pg (25-34); MEAN CORPUSCULAR HGB CONC 33 g/dL (32-36); MEAN CORPUSCULAR VOLUME 104 fL (80-99); MEAN PLATELET VOLUME 9.9 fL (9.0-12.2); MONOCYTES # (AUTO) 0.3 10^3/uL (0.0-1.0); MONOCYTES % (AUTO) 11 % (0-12); NEUTROPHILS # (AUTO) 1.8 10^3/uL (1.8-7.8); NEUTROPHILS % (AUTO) 67 % (42-75); PLATELET COUNT 198 10^3/uL (130-400); WHITE BLOOD COUNT 2.6 10^3/uL (4.3-11.0)
[2021-05-13 15:17] LABS: SMEAR SCAN COMMENT YES
[2021-05-13 15:43] LABS: ALBUMIN 3.9 GM/DL (3.2-4.5); BILIRUBIN,TOTAL 0.5 MG/DL (0.1-1.0); CALCIUM 9.6 MG/DL (8.5-10.1); CREATININE SERUM 0.76 MG/DL (0.60-1.30); POTASSIUM 4.3 MMOL/L (3.6-5.0)
== END 2021-08-11 | disposition home or self-care (01) ==
LOC: ONC 15:05
PROVIDERS: ATTEND Internal Medicine Hematology & Oncology
DX: C71.2 Malignant neoplasm of temporal lobe (principal); I10 Essential (primary) hypertension; E78.00 Pure hypercholesterolemia, unspecified; Z98.890 Other specified postprocedural states; Z92.3 Personal history of irradiation; Z92.21 Personal history of antineoplastic chemotherapy
CPT/HCPCS: 80053; 83615; 85025; G0463; 99213

== ENCOUNTER → 2021-08-03 | Outpatient (CLI) | payer MEDICARE ==
[~2021-08-03] MED LIST changes: +GADOTERATE 0.5 MMOL/ML (CLARISCAN) 15 ML VIAL IV ONE
--- NOTE | 2021-08-03 17:04 | Diagnostic Imaging Report ---
CLINICAL INDICATION: Patient has history of two brain surgeries for temporal lobe tumor. EXAM: MRI of the brain performed without and with 10 cc of Clariscan IV contrast. Sequences include axial DWI, ADC map, coronal gradient echo, axial FLAIR, axial T1, axial T2, axial T1 post IV contrast whole brain, coronal T1 fat-sat post IV contrast whole brain, and sagittal T1 fat-sat post IV contrast whole brain. COMPARISON: MRI of the brain performed without and with IV contrast dated 05/07/2021. FINDINGS: There are postop changes with craniotomy of the left anterior aspect of the head/skull again noted. There is a large CSF signal intensity fluid collection in the left frontal resection cavity region. There is interval development of patchy enhancement involving the medial left temporal lobe/left subputamen region. There is an 8 mm nodular area of enhancement in the left subputamen region. There is a 12 mm area of enhancement involving the medial left temporal lobe region. There is a moderate amount of confluent high T2 signal about these areas and involving the left temporal lobe and white matter of the left basal ganglia and left periventricular region. There is amorphous enhancement involving the left frontal lobe adjacent to the resection cavity and involving the right frontal lobe region and has slightly progressed in the interim. There are no other areas of abnormal IV contrast enhancement. There is slight progression of confluent high T2 signal involving the right frontal lobe region. There are other focal and patchy areas of high T2 signal white matter changes involving both cerebral hemispheres. There is no hydrocephalus, brain herniation, or midline shift. The [place] vascular structures show no gross abnormality as visualized. Besides postop changes, the extracranial soft tissue, skull, and orbits are unremarkable. There is minimal mucosal thickening involving the left maxillary sinus. Mastoid air cells are clear. IMPRESSION: 1: There is interval development of two patchy nodular areas of enhancement involving the medial left temporal lobe and left subputamen region with progression of confluent high T2 signal involving the anterior left cerebral hemisphere. This is concerning for progression of tumor. 2: There is progression of amorphous enhancement involving the bilateral frontal lobe regions and increased T2 signal. These findings may be related to post-treatment changes and/or radiation necrosis. Progression of disease cannot be completely excluded. 3: The remainder of this exam shows no significant interval change compared to the prior study of comparison. Dictated by: Dictated on workstation # [id number]
== END ==
LOC: RAD 14:45
PROVIDERS: ATTEND Nurse Practitioner Adult Health
DX: C71.2 Malignant neoplasm of temporal lobe (principal); Z98.890 Other specified postprocedural states
CPT/HCPCS: 70553

== ENCOUNTER 2021-08-18 14:29 | Outpatient (RCR) | payer MEDICARE ==
[~2021-08-18 14:29] MED LIST changes: -GADOTERATE 0.5 MMOL/ML (CLARISCAN) 15 ML VIAL IV ONE
== END 2021-09-14 | disposition home or self-care (01) ==
LOC: ONC 14:29
PROVIDERS: ATTEND Internal Medicine Hematology & Oncology
DX: C71.2 Malignant neoplasm of temporal lobe (principal); I10 Essential (primary) hypertension; E78.00 Pure hypercholesterolemia, unspecified; E66.9 Obesity, unspecified; Z98.890 Other specified postprocedural states; Z92.3 Personal history of irradiation; Z92.21 Personal history of antineoplastic chemotherapy
CPT/HCPCS: 99213

== ENCOUNTER 2021-10-14 10:09 | Emergency (ER) | payer MEDICARE ==
[2021-10-14] MEDS ORDERED: LACTATED RINGERS 1,000 ML IV ONE (10:15)
--- NOTE | 2021-10-14 10:17 | ED Syncope ---
General Stated Complaint: WEAKNESS Source of Information: Patient History of Present Illness Date Seen by Provider: Oct 14, 2021 Time Seen by Provider: 10:00 Initial Comments Patient to the ER by EMS from home with chief complaint that she had a witnessed event by her where she slumped over the kitchen counter and then fell to the floor had incontinence of stool and urine. She does not have a history of seizures. She does have a history of brain metastases followed by Dr. Rodriguez. She does not know the primary source. She is not having any chest pain cough shortness of air fevers chills nausea vomiting diarrhea or other symptoms prior to or after. Her notes that she has been eating and drinking less and acting a little confused lately and thought maybe she had a urinary tract infection. Patient denies any dysuria discharge, hesitancy, urgency. Patient has had similar presentations for urinary tract infection in the past. She does not have frequent syncopal episodes however. Allergies and Home Medications Allergies Coded Allergies: No Known Drug Allergies (Unverified , 08/05/14) Patient Home Medication List Home Medication List Reviewed: Yes Cefdinir (Cefdinir) 300 Mg Capsule, 300 MG PO BID Prescribed by: SARITHA ARROYO on 10/14/20 183 Cephalexin (Cephalexin) 500 Mg Capsule, 500 MG PO BID Prescribed by: JAKI WHYTE on 10/14/21 1526 Review of Systems Constitutional: No chills; dizziness; No fever; malaise, weakness EENTM: No ear discharge, No ear pain Respiratory: No cough, No short of breath Cardiovascular: No edema, No Hx of Intervention, No palpitations Gastrointestinal: No abdominal pain, No constipation, No nausea Genitourinary: see HPI; No discharge, No dysuria, No frequency Musculoskeletal: No back pain, No joint pain All Other Systems Reviewed Negative Unless Noted: Yes Past Fryggpj-Jvrgqf-Lhxcns Hx Patient Social History Tobacco Use?: No Use of E-Cig and/or Vaping dev: No Substance use?: No Seasonal Allergies Seasonal Allergies: No Past Medical History Surgeries: No (Unknown) Respiratory: No Cardiac: No Neurological: Yes Brain Tumor Genitourinary: No Gastrointestinal: No Musculoskeletal: No Endocrine: No HEENT: No Cancer: Yes Brain Did You Recieve Any Treatments: Yes What Type of Treatment Did You: Chemotherapy Psychosocial: No Integumentary: No Blood Disorders: No Adverse Reaction/Blood Tranf: No Physical Exam Vital Signs Vital Signs - First Documented 10/14/21 10:09 Pulse 78 Resp 16 B/P (MAP) 97/70 (79) Pulse Ox 100 O2 Delivery Room Air Capillary Refill : Height, Weight, BMI Height: '" Weight: lbs. oz. kg; 16.00 BMI Method: General Appearance: No Apparent Distress, WD/WN HEENT: PERRL/EOMI; No Moist Mucous Membranes Neck: Full Range of Motion, Normal Inspection Cardiovascular: Regular Rate, Rhythm, No Edema, Normal Peripheral Pulses Respiratory: Lungs Clear, Normal Breath Sounds, No Accessory Muscle Use, No Respiratory Distress Gastrointestinal: Normal Bowel Sounds, No Organomegaly Extremities: Normal Capillary Refill, Normal Inspection, No Pedal Edema Neurologic/Psychiatric: Alert, Oriented x3 Cranial Nerves: Normal Hearing, Normal Speech, PERRL Motor/Sensory: No Motor Deficit, No Sensory Deficit Skin: Normal Color, Warm/Dry Progress/Results/Core Measures Results/Orders Lab Results Laboratory Tests Test 10/14/21 10:30 10/14/21 12:05 10/14/21 12:26 Range/Units White Blood Count 6.3 4.3-11.0 10^3/uL Red Blood Count 3.90 3.80-5.11 10^6/uL Hemoglobin 13.4 11.5-16.0 g/dL Hematocrit 39 35-52 % Mean Corpuscular Volume 101 H 80-99 fL Mean Corpuscular Hemoglobin 34 25-34 pg Mean Corpuscular Hemoglobin Concent 34 32-36 g/dL Red Cell Distribution Width 12.0 10.0-14.5 % Platelet Count 179 130-400 10^3/uL Mean Platelet Volume 10.6 9.0-12.2 fL Immature Granulocyte % (Auto) 1 % Neutrophils (%) (Auto) 78 H 42-75 % Lymphocytes (%) (Auto) 12 12-44 % Monocytes (%) (Auto) 8 0-12 % Eosinophils (%) (Auto) 1 0-10 % Basophils (%) (Auto) 1 0-10 % Neutrophils # (Auto) 4.9 1.8-7.8 10^3/uL Lymphocytes # (Auto) 0.8 L 1.0-4.0 10^3/uL Monocytes # (Auto) 0.5 0.0-1.0 10^3/uL Eosinophils # (Auto) 0.0 0.0-0.3 10^3/uL Basophils # (Auto) 0.0 0.0-0.1 10^3/uL Immature Granulocyte # (Auto) 0.0 0.0-0.1 10^3/uL Sodium Level 141 135-145 MMOL/L Potassium Level 3.4 L 3.6-5.0 MMOL/L Chloride Level 105 98-107 MMOL/L Carbon Dioxide Level 22 21-32 MMOL/L Anion Gap 14 5-14 MMOL/L Blood Urea Nitrogen 17 7-18 MG/DL Creatinine 0.82 0.60-1.30 MG/DL Estimat Glomerular Filtration Rate 81 BUN/Creatinine Ratio 21 Glucose Level 131 H 70-105 MG/DL Calcium Level 9.5 8.5-10.1 MG/DL Corrected Calcium 9.5 8.5-10.1 MG/DL Total Bilirubin 0.4 0.1-1.0 MG/DL Aspartate Amino Transf (AST/SGOT) 18 5-34 U/L Alanine Aminotransferase (ALT/SGPT) 12 0-55 U/L Alkaline Phosphatase 59 40-136 U/L Troponin I < 0.028 < 0.028 <0.028 NG/ML C-Reactive Protein High Sensitivity 0.10 0.00-0.50 MG/DL Total Protein 7.0 6.4-8.2 GM/DL Albumin 4.0 3.2-4.5 GM/DL Urine Color YELLOW Urine Clarity CLEAR Urine pH 6.0 5-9 Urine Specific [place] 1.010 L 1.016-1.022 Urine Protein 1+ H NEGATIVE Urine Glucose (UA) NEGATIVE NEGATIVE Urine Ketones NEGATIVE NEGATIVE Urine Nitrite POSITIVE H NEGATIVE Urine Bilirubin NEGATIVE NEGATIVE Urine Urobilinogen 0.2 < = 1.0 MG/DL Urine Leukocyte Esterase 1+ H NEGATIVE Urine RBC (Auto) 1+ H NEGATIVE Urine RBC 0-2 /HPF Urine WBC 5-10 H /HPF Urine Crystals NONE /LPF Urine Bacteria LARGE H /HPF Urine Casts NONE /LPF Urine Mucus NEGATIVE /LPF Urine Culture Indicated YES My Orders Orders - JAKI WHYTE Continuous Ekg Monitoring (10/14/21 10:11) Ekg Tracing (10/14/21 10:11) Ed Iv/Invasive Line Start (10/14/21 10:11) Lactated Ringers (Lr 1000 Ml Iv Solution (10/14/21 10:15) Orthostatic Vital Signs (Adult (10/14/21 10:11) Cbc With Automated Diff (10/14/21 10:11) Comprehensive Metabolic Panel (10/14/21 10:11) Hs C Reactive Protein (10/14/21 10:11) Ua Culture If Indicated (10/14/21 10:11) Troponin I Dolores (10/14/21 10:11) Chest 1 View, Ap/Pa Only (10/14/21 10:11) Ct Head Wo (10/14/21 10:11) Troponin I Dolores (10/14/21 12:30) Urine Culture (10/14/21 12:05) Ceftriaxone 1 Gm Pre-Mix (Rocephin 1 Gm (10/14/21 15:30) Medications Given in ED Current Medications Medications Dose Ordered Sig/Arabella Route Start Time Stop Time Status Last Admin Dose Admin Ceftriaxone Sodium/Dextrose 50 ml @ 100 mls/hr ONCE ONCE IV 10/14/21 15:30 10/14/21 15:59 DC 10/14/21 15:30 100 MLS/HR Lactated Ringer's 1,000 ml @ 0 mls/hr Q0M ONCE IV 10/14/21 10:15 10/14/21 10:16 DC 10/14/21 10:27 0 MLS/HR Vital Signs/I&O 10/14/21 10/14/21 10/14/21 10:09 10:41 16:00 Pulse 78 65 64 74 88 Resp 16 16 B/P (MAP) 97/70 (79) 106/58 (74) 109/55 86/65 (72) 93/51 (65) Pulse Ox 100 98 O2 Delivery Room Air Room Air Progress Progress Note #1: Time: 10:16 Progress Note EKG, troponin, labs electrolytes, a liter of fluids, orthostatic vital signs, chest x-ray, CT of the head looking for bleeds. She denies use of narcotics. W e will get a urinalysis. Aseptic vital signs on presentation Progress Note #2: Time: 15:23 Progress Note The patient's blood pressures are running in her normal range 90-110 according to her. She does not feel nauseated or in any pain. She does have a UTI so we will give her some Rocephin. We discussed an observation stay but since her vital signs are normal for her she is not inclined to take advantage of this. We discussed her syncopal work-up and that she needs to follow-up in the next 1 to 2 weeks with a salt machine operator to complete a work-up outpatient and they said they will consider this however whenever she gets UTIs she gets near syncopal and I think that is the source of her symptoms. Initial ECG Impression Date: Oct 14, 2021 Initial ECG Impression Time: 10:07 Initial ECG Rate: 67 Initial ECG Rhythm: Normal Sinus Initial ECG Intervals: Normal Initial ECG Impression: Normal Comment No clinically relevant ST elevation or depression. Normal sinus rhythm. Diagnostic Imaging Diagonstic Imaging: Xray Plain Films/CT/US/NM/MRI: chest Comments [facility] [place] NAME: NOLAN SCHAEFFER [facility] REC#: [id number] PT STATUS: REG ER : 1960 PHYSICIAN: JAKI WHYTE MD ADMIT DATE: 10/14/21/ER Signed Date of Exam:10/14/21 CHEST 1 VIEW, AP/PA ONLY CLINICAL INDICATION: Patient complains of syncopal episode. Patient has history of brain tumor. EXAM: Portable chest x-ray, upright view. COMPARISON: Chest x-ray dated 10/14/2020. FINDINGS: Lungs/pleura: Lungs are clear. There is no pneumothorax. There is no pleural effusion. Mediastinum: Unremarkable. Pulmonary vasculature: Unremarkable. Heart: Unremarkable. Bones/extrathoracic soft tissue: There are degenerative spurs involving the thoracic spine. IMPRESSION: There is no radiographic evidence of acute cardiopulmonary process. Dictated by: Dictated on workstation # [id number] Dict: 10/14/21 1058 Trans: 10/14/21 120 [id number] Interpreted by: NEPTALI GARRIDO MD Electronically signed by: NEPTALI GARRIDO MD 10/14/21 1202 Reviewed: Reviewed by Me Diagonstic Imaging: CT Plain Films/CT/US/NM/MRI: head Comments [facility], [place] NAME: NOLAN SCHAEFFER [facility] REC#: [id number] PT STATUS: REG ER : 1960 PHYSICIAN: JAKI WHYTE MD ADMIT DATE: 10/14/21/ER Draft Date of Exam:10/14/21 CT HEAD WO PROCEDURE: CT head without contrast. TECHNIQUE: Multiple contiguous axial images were obtained through the brain without the use of intravenous contrast. Auto Exposure Controls were utilized during the CT exam to meet ALARA standards for radiation dose reduction. INDICATION: Syncope and brain metastasis. Correlation is made to MRI study of 08/03/2021. FINDINGS: Postoperative findings in the left frontal calvarium are again noted with no significant change in cystic cavity in the anterior left frontal region. There is dense calcification seen along the right frontal cortex and remaining medial superior left frontal cortex. In addition, there is moderate low density within the white matter of the right frontal lobe with rounded focal lesion in the left basal ganglia reaching approximately 1 cm in diameter with moderate surrounding vasogenic edema within the left basal ganglia and temporal lobe regions. This results in mild mass effect upon the left lateral ventricle without significant midline shift or herniation. There is advanced atherosclerotic calcification within distal internal carotid arteries. There are additional calcifications within the left frontal white matter and basal ganglia without evidence of acute hemorrhage. IMPRESSION: Findings remain compatible with known right frontal region neoplasm with probable additional masses involving the left basal ganglia and possible involvement of left temporal white matter. These findings are generally similar when compared to the recent MRI study. There is no evidence of acute hemorrhage or other acute intracranial abnormality. Dictated on workstation # [id number] Dict: 10/14/21 1158 Trans: 10/14/21 1207 [id number] Interpreted by: ANA NOWAK MD Electronically signed by: Reviewed: Reviewed by Me Departure Impression Primary Impression: Urinary tract infection Qualified Codes: N30.00 - Acute cystitis without hematuria Additional Impression: Near syncope Disposition: 01 HOME, SELF-CARE Condition: Stable Departure-Patient Inst. Decision time for Depature: 15:24 Referrals: DOTTY VASQUEZ MD FACP FAC CCDS URI ERVIN MD (PCP/Family) Primary Care Physician Patient Instructions: Urinary Tract Infection, Adult ED Add. Discharge Instructions: Drink plenty of fluids. Keflex 500 mg twice a day for 1 week. Return to the ER for worsening symptoms otherwise follow-up with your primary care doctor. I would encourage you to follow-up in 1 to 2 weeks with the salt machine operator by calling Dr. Vasquez for a follow-up appointment about the near syncopal event to make sure there is no cardiac reason for your symptoms. Scripts Cephalexin (Cephalexin) 500 Mg Capsule 500 MG PO BID for 7 Days, #14 CAP 0 Refills Prov: JAKI WHYTE 10/14/21 Copy Copies To 1: DOTTY VASQUEZ MD [facility] JAKI WHYTE Oct 14, 2021 10:17
[2021-10-14 10:41] VITALS: BP_SYST 106; BP_SYST 86; BP_SYST 93; BP_DIAS 51; BP_DIAS 58; BP_DIAS 65
[2021-10-14 10:43] LABS: BASOPHILS % (AUTO) 1 % (0-10); EOSINOPHILS % (AUTO) 1 % (0-10); HEMATOCRIT 39 % (35-52); HEMOGLOBIN 13.4 g/dL (11.5-16.0); LYMPHOCYTES # (AUTO) 0.8 10^3/uL (1.0-4.0); LYMPHOCYTES % (AUTO) 12 % (12-44); MEAN CORPUSCULAR HEMOGLOBIN 34 pg (25-34); MEAN CORPUSCULAR HGB CONC 34 g/dL (32-36); MEAN CORPUSCULAR VOLUME 101 fL (80-99); MEAN PLATELET VOLUME 10.6 fL (9.0-12.2); MONOCYTES # (AUTO) 0.5 10^3/uL (0.0-1.0); MONOCYTES % (AUTO) 8 % (0-12); NEUTROPHILS # (AUTO) 4.9 10^3/uL (1.8-7.8); NEUTROPHILS % (AUTO) 78 % (42-75); PLATELET COUNT 179 10^3/uL (130-400); WHITE BLOOD COUNT 6.3 10^3/uL (4.3-11.0)
[2021-10-14 10:51] LABS: CHLORIDE 105 MMOL/L (98-107); POTASSIUM 3.4 MMOL/L (3.6-5.0); SODIUM 141 MMOL/L (135-145)
[2021-10-14 10:52] LABS: CALCIUM 9.5 MG/DL (8.5-10.1)
[2021-10-14 10:54] LABS: GLUCOSE 131 MG/DL (70-105)
[2021-10-14 10:55] LABS: BILIRUBIN,TOTAL 0.4 MG/DL (0.1-1.0); CARBON DIOXIDE 22 MMOL/L (21-32)
[2021-10-14 10:57] LABS: ALKALINE PHOSPHATASE 59 U/L (40-136); CREATININE SERUM 0.82 MG/DL (0.60-1.30); GFR ESTIMATED 81
[2021-10-14 10:59] LABS: BUN/CREATININE RATIO 21
[2021-10-14 11:00] LABS: ALANINE AMINOTRANSFERASE 12 U/L (0-55)
--- NOTE | 2021-10-14 11:00 | Diagnostic Imaging Report ---
CLINICAL INDICATION: Patient complains of syncopal episode. Patient has history of brain tumor. EXAM: Portable chest x-ray, upright view. COMPARISON: Chest x-ray dated 10/14/2020. FINDINGS: Lungs/pleura: Lungs are clear. There is no pneumothorax. There is no pleural effusion. Mediastinum: Unremarkable. Pulmonary vasculature: Unremarkable. Heart: Unremarkable. Bones/extrathoracic soft tissue: There are degenerative spurs involving the thoracic spine. IMPRESSION: There is no radiographic evidence of acute cardiopulmonary process. Dictated by: Dictated on workstation # [id number]
--- NOTE | 2021-10-14 12:08 | Diagnostic Imaging Report ---
PROCEDURE: CT head without contrast. TECHNIQUE: Multiple contiguous axial images were obtained through the brain without the use of intravenous contrast. Auto Exposure Controls were utilized during the CT exam to meet ALARA standards for radiation dose reduction. INDICATION: Syncope and brain metastasis. Correlation is made to MRI study of 08/03/2021. FINDINGS: Postoperative findings in the left frontal calvarium are again noted with no significant change in cystic cavity in the anterior left frontal region. There is dense calcification seen along the right frontal cortex and remaining medial superior left frontal cortex. In addition, there is moderate low density within the white matter of the right frontal lobe with rounded focal lesion in the left basal ganglia reaching approximately 1 cm in diameter with moderate surrounding vasogenic edema within the left basal ganglia and temporal lobe regions. This results in mild mass effect upon the left lateral ventricle without significant midline shift or herniation. There is advanced atherosclerotic calcification within distal internal carotid arteries. There are additional calcifications within the left frontal white matter and basal ganglia without evidence of acute hemorrhage. IMPRESSION: Findings remain compatible with known right frontal region neoplasm with probable additional masses involving the left basal ganglia and possible involvement of left temporal white matter. These findings are generally similar when compared to the recent MRI study. There is no evidence of acute hemorrhage or other acute intracranial abnormality. Dictated by: Dictated on workstation # [id number]
[2021-10-14 12:11] LABS: BILIRUBIN,URINE NEGATIVE (NEGATIVE); CLARITY,URINE CLEAR; COLOR,URINE YELLOW; GLUCOSE, URINE (UA) NEGATIVE (NEGATIVE); KETONES,URINE NEGATIVE (NEGATIVE); LEUKOCYTE ESTERASE ,URINE 1+ (NEGATIVE); NITRITE,URINE POSITIVE (NEGATIVE); PROTEIN,URINE 1+ (NEGATIVE)
[2021-10-14 12:26] LABS: BACTERIA,URINE LARGE /HPF; RBC,URINE 0-2 /HPF
[2021-10-14] MEDS ORDERED: CEPH500C PO (15:26)
[2021-10-14] MEDS ORDERED: cefTRIAXone 1 GM PRE-MIX 50 ML IV ONE (15:30)
[2021-10-14 16:00] VITALS: BP 109/55
== END 2021-10-14 16:00 | disposition home or self-care (01) ==
LOC: ER 10:09 → EDUNIT# 10:09 → ER 16:00
DX: N39.0 Urinary tract infection, site not specified (principal); R55 Syncope and collapse
CPT/HCPCS: 36415; 70450; 71045; 80053; 81000; 84484; 85025; 86141; 87077; 87088; 87186; 93005